=== PATIENT | female | born 1990 | race African-American/Black ===

== ENCOUNTER 2016-12-30 14:44 | Emergency (ER) | payer BC ==
[~2016-12-30 14:44] MED LIST: PROM25TA5 PO
[2016-12-30 16:17] VITALS: BP 102/50; PULSE 65; RESP 18; TEMP 97; O2SAT 100
== END 2016-12-30 16:52 | disposition left against medical advice (07) ==
LOC: NEDAMB 14:44
DX: R42 Dizziness and giddiness (principal)
CPT/HCPCS: 99281

== ENCOUNTER 2017-03-04 12:50 | Emergency (ER) | payer BC ==
[~2017-03-04] VITALS: Ht 154.9 cm; Wt 61.0 kg
[2017-03-04 12:52] VITALS: BP 108/56; PULSE 82; RESP 20; TEMP 98.6; O2SAT 99
[2017-03-04] MEDS ORDERED: FERR1TAB36 PO (13:51)
--- NOTE | 2017-03-04 13:58 | PD ---
HPI . Abdomen pain Chief Complaint: Abdominal Pain Time Seen by Provider: 13:43 Travel History International Travel<30 days: No Contact w/Intl Traveler<30days: No Traveled to known affect area: No History of Present Illness HPI Patient presents with abdominal pain which started last night. He describes it as a bubbling. She has had 2 episodes of emesis, the last being about 9 PM last night. She reports approximately 4 episodes of diarrhea. She has taken Imodium without relief. She denies fever. She denies urinary tract symptoms. She states that she has been around a couple of people at work with the same thing. PFSH Past Medical History Hx Anticoagulant Therapy: No Anemia: Yes Depression: Yes Cardiovascular Problems: No Chemotherapy: No Cerebrovascular Accident: No Diabetes: No Diminished Hearing: No Gestational Age in Weeks: 10 Hypertension: Yes Inguinal Hernia: Yes Psychiatric: Yes Respiratory: No Immunizations Current: Yes Tetanus Vaccination: > 5 Years Influenza Vaccination: No ?: Not LMP: 02/22/17 : 3 Para: 0 Miscarriage: 1 Dilation and Curettage (D&C): Yes Past Surgical History Gynecologic Surgery: Yes (D&C) Social History Alcohol Use: Yes (rare) Tobacco Use: No Substance Use: No Allergies-Medications (Allergen,Severity, Reaction): Coded Allergies: No Known Allergies (Verified , 03/04/17) Reported Meds & Prescriptions Reported Meds & Active Scripts Active Reported Iron (Ferrous Sulfate) 325 Mg Tab 325 Mg PO DAILY Take Review of Systems Except as stated in HPI: all other systems reviewed are Neg General / Constitutional: No: Fever, Chills Gastrointestinal: Positive: Nausea, Vomiting, Diarrhea, Abdominal Pain Genitourinary: No: Urgency, Frequency, Dysuria Physical Exam Narrative GENERAL: Awake and alert in no acute distress. SKIN: Warm and dry. HEAD: Atraumatic. Normocephalic. EYES: Pupils equal and round. Extraocular movements are intact. ENT: No nasal bleeding or discharge. Mucous membranes pink and moist. NECK: Trachea midline. Neck is supple. CARDIOVASCULAR: Regular rate and rhythm. Heart sounds are normal. RESPIRATORY: No accessory muscle use. Lungs are clear with full air movement throughout. GASTROINTESTINAL: Abdomen soft, non-tender, nondistended. Bowel sounds positive. MUSCULOSKELETAL: No obvious deformities. No edema. NEUROLOGICAL: Awake and alert. No obvious cranial nerve deficits. Motor grossly within normal limits. Normal speech. PSYCHIATRIC: Appropriate mood and affect; insight and judgment normal. Data Data Last Documented VS Vital Signs Date Time Temp Pulse Resp B/P Pulse Ox O2 Delivery O2 Flow Rate FiO2 03/04/17 13:43 18 03/04/17 12:52 98.6 82 108/56 99 Room Air Orders Ed Urine Pregnancytest Poc (03/04/17 13:52) Urinalysis - C+S If Indicated (03/04/17 13:52) [facility] Medical Decision Making Medical Screen Exam Complete: Yes Emergency Medical Condition: Yes Differential Diagnosis Differential diagnosis of diarrhea includes but is not limited to early enteritis, bacterial enteritis, antibiotic induced diarrhea, irritable bowel syndrome Narrative Course Patient presents for abdominal pain associated with nausea, vomiting and diarrhea. He has a benign abdominal exam. Her symptoms are consistent with viral gastroenteritis. Diagnosis Primary Impression: Gastroenteritis Patient Instructions: Gastroenteritis (DC), General Instructions Disposition: 01 DISCHARGE HOME Condition: Stable Li Bull MD Mar 04, 2017 13:58
== END 2017-03-04 14:40 | disposition home or self-care (01) ==
LOC: NEPD 12:50
DX: K52.9 Noninfective gastroenteritis and colitis, unspecified (principal); I10 Essential (primary) hypertension
CPT/HCPCS: 84703; 99284

== ENCOUNTER 2017-12-30 16:27 | Emergency (ER) | payer SELFPAY ==
[~2017-12-30] VITALS: Ht 157.5 cm; Wt 69.8 kg
[~2017-12-30 16:27] MED LIST changes: +FERR1TAB36 PO; -PROM25TA5 PO
[2017-12-30 16:59] VITALS: BP 125/60; PULSE 90; RESP 16; TEMP 98.3; O2SAT 100
[2017-12-30] MEDS ORDERED: SODIUM CHLOR 0.9% 1000 ML INJ 1,000 ML IV SCH (17:32)
[2017-12-30 17:35] VITALS: O2SAT 98
--- NOTE | 2017-12-30 17:41 | PD ---
HPI Chief Complaint: Abdominal Pain Time Seen by Provider: 17:23 Travel History International Travel<30 days: No Contact w/Intl Traveler<30days: No Traveled to known affect area: No History of Present Illness HPI The patient is a 27-year-old Teri female who presents emergency department for a one-week history of nausea, vomiting, diarrhea, and intermittent abdominal cramping. The patient complains of nausea and vomiting, not related to eating, was able to eat a nutritional bar earlier today. She also complains of diarrhea, 2-3 episodes daily of loose to watery stool without any visible blood. She also complains of generalized abdominal cramping, worse prior to diarrhea, and alleviated after having a bowel movement. Last menstrual cycle was December 02, 2016. She denies any dysuria, frequency, urgency , or abnormal vaginal discharge. She denies any associated fever. She denies any recent international travel or drinking well water. The patient works at the [employer]. PFS Past Medical History Hx Anticoagulant Therapy: No Anemia: Yes Depression: Yes Cardiovascular Problems: No Chemotherapy: No Cerebrovascular Accident: No Diabetes: No Diminished Hearing: No Gestational Age in Weeks: 10 Hypertension: Yes Inguinal Hernia: Yes Psychiatric: Yes Respiratory: No Immunizations Current: Yes ?: Unknown LMP: 12/04/17 : 3 Para: 0 Miscarriage: 1 Dilation and Curettage (D&C): Yes Past Surgical History Gynecologic Surgery: Yes (D&C) Social History Alcohol Use: Yes (rare) Tobacco Use: No Substance Use: No Allergies-Medications (Allergen,Severity, Reaction): Coded Allergies: No Known Allergies (Verified Adverse Reaction, Unknown, 12/30/17) Reported Meds & Prescriptions Reported Meds & Active Scripts Active Zofran Odt (Ondansetron Odt) 4 Mg Tab 4 Mg SL Q6HR PRN Review of Systems Except as stated in HPI: all other systems reviewed are Neg General / Constitutional: No: Fever Cardiovascular: No: Chest Pain or Discomfort Respiratory: No: Shortness of Breath Gastrointestinal: Positive: Nausea, Vomiting, Diarrhea, Abdominal Pain Genitourinary: No: Dysuria, Discharge, Vaginal Bleeding Musculoskeletal: No: Myalgias, Arthralgias Skin: No Rash Physical Exam Narrative GENERAL: Awake, alert, pleasant 27-year-old female who appears her stated age and is in no acute respiratory distress. SKIN: Focused skin assessment warm/dry. HEAD: Atraumatic. Normocephalic. EYES: No scleral icterus. ENT: No nasal bleeding or discharge. Dry mucous membranes. NECK: Trachea midline. No JVD. CARDIOVASCULAR: Regular rate and rhythm. No murmur appreciated. RESPIRATORY: No accessory muscle use. Clear to auscultation. Breath sounds equal bilaterally. GASTROINTESTINAL: Abdomen soft, non-tender, nondistended. No rebound tenderness , guarding, rigidity. Back: No CVA tenderness. MUSCULOSKELETAL: No obvious deformities. No clubbing. No cyanosis. No edema. NEUROLOGICAL: Awake and alert. No obvious cranial nerve deficits. Motor grossly within normal limits. Normal speech. PSYCHIATRIC: Appropriate mood and affect; insight and judgment normal. Data Data Last Documented VS Vital Signs Date Time Temp Pulse Resp B/P (MAP) Pulse Ox O2 Delivery O2 Flow Rate FiO2 12/30/17 18:35 77 18 115/78 (90) 97 Room Air 12/30/17 16:59 98.3 Orders Orders Complete Blood Count With Diff (12/30/17 17:32) Comprehensive Metabolic Panel (12/30/17 17:32) Lipase (12/30/17 17:32) Urinalysis - C+S If Indicated (12/30/17 17:32) Iv Access Insert/Monitor (12/30/17 17:32) Ecg Monitoring (12/30/17 17:32) Oximetry (12/30/17 17:32) Ondansetron Inj (Zofran Inj) (12/30/17 17:45) Sodium Chlor 0.9% 1000 Ml Inj (Ns 1000 M (12/30/17 17:32) Sodium Chloride 0.9% Flush (Ns Flush) (12/30/17 17:45) Ed Urine Pregnancytest Poc (12/30/17 17:32) Ed Discharge Order (12/30/17 19:19) Labs Laboratory Tests Test 12/30/17 17:40 White Blood Count 5.9 TH/MM3 Red Blood Count 3.46 MIL/MM3 Hemoglobin 5.9 GM/DL Hematocrit 19.5 % Mean Corpuscular Volume 56.3 FL Mean Corpuscular Hemoglobin 17.2 PG Mean Corpuscular Hemoglobin Concent 30.5 % Red Cell Distribution Width 19.8 % Platelet Count 218 TH/MM3 Mean Platelet Volume 7.7 FL Neutrophils (%) (Auto) 45.3 % Lymphocytes (%) (Auto) 41.8 % Monocytes (%) (Auto) 11.4 % Eosinophils (%) (Auto) 0.6 % Basophils (%) (Auto) 0.9 % Neutrophils # (Auto) 2.6 TH/MM3 Lymphocytes # (Auto) 2.5 TH/MM3 Monocytes # (Auto) 0.7 TH/MM3 Eosinophils # (Auto) 0.0 TH/MM3 Basophils # (Auto) 0.1 TH/MM3 CBC Comment AUTO DIFF Differential Comment AUTO DIFF CONFIRMED Platelet Estimate NORMAL Platelet Morphology Comment NORMAL Tear Drop Cells 1+ Ovalocytes 1+ Urine Color YELLOW Urine Turbidity CLEAR Urine pH 6.0 Urine Specific [place] 1.015 Urine Protein NEG mg/dL Urine Glucose (UA) NEG mg/dL Urine Ketones NEG mg/dL Urine Occult Blood NEG Urine Nitrite NEG Urine Bilirubin NEG Urine Leukocyte Esterase NEG Urine RBC 0-2 /hpf Urine WBC 0-2 /hpf Urine Squamous Epithelial Cells 0-5 /hpf Urine Bacteria NONE /hpf Microscopic Urinalysis Comment CULT NOT INDICATED Blood Urea Nitrogen 11 MG/DL Creatinine 0.61 MG/DL Random Glucose 86 MG/DL Total Protein 8.3 GM/DL Albumin 3.4 GM/DL Calcium Level 8.6 MG/DL Alkaline Phosphatase 92 U/L Aspartate Amino Transf (AST/SGOT) 18 U/L Alanine Aminotransferase (ALT/SGPT) 17 U/L Total Bilirubin 0.3 MG/DL Sodium Level 137 MEQ/L Potassium Level 3.8 MEQ/L Chloride Level 107 MEQ/L Carbon Dioxide Level 25.1 MEQ/L Anion Gap 5 MEQ/L Estimat Glomerular Filtration Rate 141 ML/MIN Lipase 92 U/L MDM Medical Decision Making Medical Screen Exam Complete: Yes Emergency Medical Condition: Yes Medical Record Reviewed: Yes Interpretation(s) Laboratory Tests Test 12/30/17 17:40 White Blood Count 5.9 TH/MM3 Red Blood Count 3.46 MIL/MM3 Hemoglobin 5.9 GM/DL Hematocrit 19.5 % Mean Corpuscular Volume 56.3 FL Mean Corpuscular Hemoglobin 17.2 PG Mean Corpuscular Hemoglobin Concent 30.5 % Red Cell Distribution Width 19.8 % Platelet Count 218 TH/MM3 Mean Platelet Volume 7.7 FL Neutrophils (%) (Auto) 45.3 % Lymphocytes (%) (Auto) 41.8 % Monocytes (%) (Auto) 11.4 % Eosinophils (%) (Auto) 0.6 % Basophils (%) (Auto) 0.9 % Neutrophils # (Auto) 2.6 TH/MM3 Lymphocytes # (Auto) 2.5 TH/MM3 Monocytes # (Auto) 0.7 TH/MM3 Eosinophils # (Auto) 0.0 TH/MM3 Basophils # (Auto) 0.1 TH/MM3 CBC Comment AUTO DIFF Differential Comment AUTO DIFF CONFIRMED Platelet Estimate NORMAL Platelet Morphology Comment NORMAL Tear Drop Cells 1+ Ovalocytes 1+ Urine Color YELLOW Urine Turbidity CLEAR Urine pH 6.0 Urine Specific [place] 1.015 Urine Protein NEG mg/dL Urine Glucose (UA) NEG mg/dL Urine Ketones NEG mg/dL Urine Occult Blood NEG Urine Nitrite NEG Urine Bilirubin NEG Urine Leukocyte Esterase NEG Urine RBC 0-2 /hpf Urine WBC 0-2 /hpf Urine Squamous Epithelial Cells 0-5 /hpf Urine Bacteria NONE /hpf Microscopic Urinalysis Comment CULT NOT INDICATED Blood Urea Nitrogen 11 MG/DL Creatinine 0.61 MG/DL Random Glucose 86 MG/DL Total Protein 8.3 GM/DL Albumin 3.4 GM/DL Calcium Level 8.6 MG/DL Alkaline Phosphatase 92 U/L Aspartate Amino Transf (AST/SGOT) 18 U/L Alanine Aminotransferase (ALT/SGPT) 17 U/L Total Bilirubin 0.3 MG/DL Sodium Level 137 MEQ/L Potassium Level 3.8 MEQ/L Chloride Level 107 MEQ/L Carbon Dioxide Level 25.1 MEQ/L Anion Gap 5 MEQ/L Estimat Glomerular Filtration Rate 141 ML/MIN Lipase 92 U/L Differential Diagnosis Differential diagnosis includes gastroenteritis, viral syndrome, food poisoning , dehydration, biliary colic, cholecystitis, pancreatitis electrolyte abnormality, , pyelonephritis. Narrative Course IV was established, labs are drawn and sent, and the patient was placed on cardiac telemetry monitoring and continuous pulse oximetry monitoring. The patient was administered Zofran and IV fluids. UA was sent to lab. Bedside UA test was negative. Urine was unremarkable. LFTs and lipase are unremarkable. The patient's hemoglobin was 5.9. I reviewed the EMR, she does have a history of anemia, notes that she has heavy menstrual cycles. The patient denies any rectal bleeding. She has signed out against diploma medical assistant in the past when requiring a blood transfusion, states she does not want to stay in the hospital. I had a discussion with the patient regarding blood transfusion versus outpatient follow-up with gynecology for possible placement on control for her heavy cycles as well as iron administration and her transfusion and/or follow-up with transportation economics teacher. My recommendations were for 23 hour observation for type and screen and blood transfusion with outpatient workup and follow-up. However, the patient does not want to be admitted, is going to sign out AGAINST MEDICAL ADVICE. She is advised to return if symptoms worsen or progress. Diagnosis Primary Impression: Gastroenteritis Additional Impressions: Nausea vomiting and diarrhea Microcytic anemia Patient Instructions: General Instructions Additional Instructions: Medications as directed. Plenty fluids to stay hydrated. Please provide the patient a copy of her labs at discharge. Work excuse for 2 days. Clear liquid diet and advance as tolerated. Return if you change her mind in regards to blood transfusion. Follow-up with the transportation economics teacher and/or manager fleet. Med/Other Pt SpecificInfo: Prescription(s) given Scripts Ondansetron Odt (Zofran Odt) 4 Mg Tab 4 MG SL Q6HR Y for Nausea/Vomiting, #10 TAB 0 Refills Prov: Holden Waggoner MD 12/30/17 Disposition: 07 AGAINST MEDICAL ADVICE Condition: Stable Holden Waggoner MD Dec 30, 2017 17:41
[2017-12-30] MEDS ORDERED: SODIUM CHLORIDE 0.9% FLUSH 10 ML FLUSH IV FLUSH PRN (17:45)
[2017-12-30] MEDS ORDERED: ONDANSETRON HCL 4 MG/2 ML VIAL IVP ONE (17:45)
[2017-12-30 17:58] LABS: BILIRUBIN, URINE NEG (NEG); BLOOD, URINE NEG (NEG); GLUCOSE,URINE NEG (NEG); KETONE, URINE NEG (NEG); NITRITE,URINE NEG (NEG); URINE LEUKOCYTE ESTERASE NEG (NEG)
[2017-12-30 18:05] LABS: CHLORIDE 107 MEQ/L (98-107); SODIUM (NA) 137 MEQ/L (136-145)
[2017-12-30 18:06] LABS: RBC, URINE 0-2 /hpf (0-3); SQUAMOUS EPITHELIAL CELL URINE 0-5 /hpf (0-5); URINE COLOR YELLOW (YELLW/STRAW); WBC, URINE 0-2 /hpf (0-5)
[2017-12-30 18:08] LABS: CALCIUM 8.6 MG/DL (8.5-10.1)
[2017-12-30 18:09] LABS: ALBUMIN 3.4 GM/DL (3.4-5.0); BICARBONATE 25.1 MEQ/L (21.0-32.0); BLOOD UREA NITROGEN 11 MG/DL (7-18); GLUCOSE,RANDOM 86 MG/DL (74-106)
[2017-12-30 18:12] LABS: ALT (GPT) 17 U/L (10-53); AST (GOT) 18 U/L (15-37); CREATININE 0.61 MG/DL (0.50-1.00); GLOMERULAR FILTRATION RATE 141 ML/MIN (>89)
[2017-12-30 18:13] LABS: TOTAL BILIRUBIN ADULT 0.3 MG/DL (0.2-1.0); TOTAL PROTEIN 8.3 GM/DL (6.4-8.2)
[2017-12-30 18:14] LABS: ALKALINE PHOSPHATASE 92 U/L (45-117)
[2017-12-30] MEDS ORDERED: ZOFR4TAB3 SL (18:17)
[2017-12-30 18:35] VITALS: BP 115/78; PULSE 77; RESP 18; O2SAT 97
[2017-12-30 18:38] LABS: AUTOMATED NEUTROPHIL # 2.6 TH/MM3 (1.8-7.7); BASOPHIL # 0.1 TH/MM3 (0-0.2); BASOPHIL % 0.9 % (0.0-2.0); EOSINOPHIL % 0.6 % (0.0-4.0); LYMPH % 41.8 % (9.0-44.0); LYMPHOCYTE # 2.5 TH/MM3 (1.0-4.8); MEAN CELL VOLUME 56.3 FL (80.0-100.0); MEAN CORPUSCULAR HEMOGLOBIN 17.2 PG (27.0-34.0); MEAN CORPUSCULAR HGB CONC 30.5 % (32.0-36.0); MEAN PLATELET VOLUME 7.7 FL (7.0-11.0); MONO % 11.4 % (0.0-8.0); MONOCYTE # 0.7 TH/MM3 (0-0.9); NEUT % 45.3 % (16.0-70.0); PLATELET COUNT 218 TH/MM3 (150-450); RED BLOOD COUNT 3.46 MIL/MM3 (4.00-5.30); RED CELL DISTRIBUTION WIDTH 19.8 % (11.6-17.2); WHITE BLOOD COUNT 5.9 TH/MM3 (4.0-11.0)
[2017-12-30 18:42] LABS: HEMATOCRIT 19.5 % (35.0-46.0); HEMOGLOBIN 5.9 GM/DL (11.6-15.3)
[2017-12-30 19:02] LABS: OVALOCYTES 1+ (NORMAL); TEARDROP RBCS 1+ (NORMAL)
[2017-12-30 19:33] VITALS: BP 116/66; PULSE 74; RESP 18; O2SAT 98
== END 2017-12-30 19:36 | disposition left against medical advice (07) ==
LOC: PHED 16:27
DX: K52.9 Noninfective gastroenteritis and colitis, unspecified (principal); D50.9 Iron deficiency anemia, unspecified; F32.9 Major depressive disorder, single episode, unspecified; I10 Essential (primary) hypertension
CPT/HCPCS: 80053; 81001; 83690; 84703; 85025; 96361; 96374; 99284; J2405; J7030

== ENCOUNTER 2018-03-07 23:50 | Emergency (ER) | payer SELFPAY ==
[~2018-03-07] VITALS: Ht 154.9 cm; Wt 72.5 kg
[~2018-03-07 23:50] MED LIST changes: -FERR1TAB36 PO; +ZOFR4TAB3 SL
[2018-03-08] VITALS: BP 115/57; PULSE 82; RESP 18; TEMP 98.9; O2SAT 99
[2018-03-08] MEDS ORDERED: SODIUM CHLOR 0.9% 1000 ML INJ 1,000 ML IV SCH (00:14)
[2018-03-08] MEDS ORDERED: ONDANSETRON HCL 4 MG/2 ML VIAL IVP ONE (00:15)
[2018-03-08] MEDS ORDERED: SODIUM CHLORIDE 0.9% FLUSH 10 ML FLUSH IV FLUSH PRN (00:15)
[2018-03-08] MEDS ORDERED: ZOFR4TAB PO (00:22)
--- NOTE | 2018-03-08 00:22 | PD ---
HPI Chief Complaint: Nausea vomiting diarrhea Time Seen by Provider: 00:07 Travel History International Travel<30 days: No Contact w/Intl Traveler<30days: No Traveled to known affect area: No History of Present Illness HPI Patient is a 27-year-old female who presents the emergency room with complaints of nausea, vomiting and diarrhea for the past 5 days. Patient reports that since she could not stop vomiting while at work today, she decided to come to the ER for evaluation. Patient reports no sick contacts. Denies taking any antibiotics recently. Reports that she thinks that she may have food poisoning. Patient denies any fevers or chills. Reports diffuse abdominal cramping. Denies any vaginal discharge or bleeding. Denies any pelvic pain. Denies dysuria, urinary urgency or frequency. Patient denies any recent travels or trips. Of note, patient does have history of iron deficiency anemia which she gets frequent blood transfusions for PFSH Past Medical History Hx Anticoagulant Therapy: No Anemia: Yes Depression: Yes Cardiovascular Problems: Yes (valve regurgitation) Chemotherapy: No Cerebrovascular Accident: No Diabetes: No Diminished Hearing: No Gestational Age in Weeks: 10 Hypertension: Yes Inguinal Hernia: Yes Psychiatric: Yes Respiratory: No Immunizations Current: Yes : 3 Para: 0 Miscarriage: 1 Dilation and Curettage (D&C): Yes Past Surgical History Gynecologic Surgery: Yes (D&C) Social History Alcohol Use: Yes (rare) Tobacco Use: No Substance Use: Yes (mj) Allergies-Medications (Allergen,Severity, Reaction): Coded Allergies: No Known Allergies (Verified Adverse Reaction, Unknown, 12/30/17) Reported Meds & Prescriptions Reported Meds & Active Scripts Active Zofran (Ondansetron HCl) 4 Mg Tab 4 Mg PO Q6HR PRN Zofran Odt (Ondansetron Odt) 4 Mg Tab 4 Mg SL Q6HR PRN Review of Systems General / Constitutional: No: Fever Eyes: No: Visual changes HENT: No: Headaches Cardiovascular: No: Chest Pain or Discomfort Respiratory: No: Shortness of Breath Gastrointestinal: Positive: Nausea, Vomiting, Diarrhea, No: Abdominal Pain Genitourinary: No: Dysuria Musculoskeletal: No: Pain Skin: No Rash Neurologic: No: Weakness Psychiatric: No: Depression Endocrine: No: Polydipsia Hematologic/Lymphatic: No: Easy Bruising Physical Exam Narrative GENERAL: NAD, nontoxic SKIN: Focused skin assessment warm/dry. HEAD: Atraumatic. Normocephalic. EYES: Pupils equal and round. No scleral icterus. No injection or drainage. ENT: No nasal bleeding or discharge. Mucous membranes pink and moist. NECK: Trachea midline. No JVD. CARDIOVASCULAR: Regular rate and rhythm. No murmur appreciated. RESPIRATORY: No accessory muscle use. Clear to auscultation. Breath sounds equal bilaterally. GASTROINTESTINAL: Abdomen soft, non-tender, nondistended. Hepatic and splenic margins not palpable. MUSCULOSKELETAL: No obvious deformities. No clubbing. No cyanosis. No edema. NEUROLOGICAL: Awake and alert. No obvious cranial nerve deficits. Motor grossly within normal limits. Normal speech. PSYCHIATRIC: Appropriate mood and affect; insight and judgment normal. Data Data Last Documented VS Vital Signs Date Time Temp Pulse Resp B/P (MAP) Pulse Ox O2 Delivery O2 Flow Rate FiO2 03/08/18 00:36 98 4 00:00 98.9 82 18 Orders Orders Beta Hcg (Quant/Titer) (03/08/18:14) Complete Blood Count With Diff (03/08/18:14) Comprehensive Metabolic Panel (03/08/18 00:14) Lipase (03/08/18 00:14) Prothrombin Time / Inr (Pt) (03/08/18:14) Act Partial Throm Time (Ptt) (03/08/18:14) Urinalysis - C+S If Indicated (03/08/18 00:14) Iv Access Insert/Monitor (03/08/18:14) Ecg Monitoring (03/08/18:14) Oximetry (03/08/18 00:14) Ondansetron Inj (Zofran Inj) (03/08/18 00:15) Sodium Chlor 0.9% 1000 Ml Inj (Ns 1000 M (03/08/18 00:14) Sodium Chloride 0.9% Flush (Ns Flush) (03/08/18 00:15) Ed Urine Pregnancytest Poc (03/08/18 00:14) Labs Laboratory Tests Test 03/08/18 00:30 White Blood Count 5.5 TH/MM3 Red Blood Count 3.85 MIL/MM3 Hemoglobin 7.4 GM/DL Hematocrit 24.6 % Mean Corpuscular Volume 64.0 FL Mean Corpuscular Hemoglobin 19.4 PG Mean Corpuscular Hemoglobin Concent 30.3 % Red Cell Distribution Width 27.2 % Platelet Count 396 TH/MM3 Mean Platelet Volume 7.1 FL CBC Comment AUTO DIFF MDM Medical Decision Making Medical Screen Exam Complete: Yes Emergency Medical Condition: Yes Medical Record Reviewed: Yes Interpretation(s) Vital Signs Date Time Temp Pulse Resp B/P (MAP) Pulse Ox O2 Delivery O2 Flow Rate FiO2 03/08/18 00:00 98.9 82 18 115/57 (76) 99 Differential Diagnosis Gastritis, gastroenteritis, electrolyte abnormality, appendicitis, UTI, cholecystitis Narrative Course Patient is a 27-year-old female presents to emergency room with complaints of nausea, vomiting, diarrhea for the past 5 days. Patient had multiple episodes of vomiting while at work today, patient here to find out if she has food poisoning. Patient with no abdominal pain, reports diffuse abdominal cramping. During the course of the patients emergency department visit, the patients history, examination, and differential diagnosis were reviewed with the patient. The patient was placed on a transfer driver with oximetry and frequent blood pressure monitoring. The patient had an IV access obtained and blood work sent for analysis. The patient was initially provided IVF, IV Zofran patient signed out to care of Dr. Blake at change of shift Diagnosis Primary Impression: Nausea vomiting and diarrhea Additional Impression: Anemia Departure Forms: Work Release Enter return to work date: Mar 12, 2018 Additional Instructions: Please provide patient with a copy of their lab work and studies at discharge* * Please follow up with your primary care doctor in 2-3 days Return to the ER if symptoms worsen or progress Return to the ER as needed Med/Other Pt SpecificInfo: Prescription(s) given Scripts Ondansetron (Zofran) 4 Mg Tab 4 MG PO Q6HR Y for NAUSEA OR VOMITING, #20 TAB 0 Refills Prov: Christel Comer DO 03/08/18 Christel Comer DO Mar 08, 2018 00:22
[2018-03-08 00:36] VITALS: O2SAT 98
[2018-03-08 00:39] LABS: HEMATOCRIT 24.6 % (35.0-46.0); HEMOGLOBIN 7.4 GM/DL (11.6-15.3); MEAN CORPUSCULAR HEMOGLOBIN 19.4 PG (27.0-34.0); MEAN CORPUSCULAR HGB CONC 30.3 % (32.0-36.0); MEAN PLATELET VOLUME 7.1 FL (7.0-11.0); PLATELET COUNT 396 TH/MM3 (150-450); RED BLOOD COUNT 3.85 MIL/MM3 (4.00-5.30); RED CELL DISTRIBUTION WIDTH 27.2 % (11.6-17.2); WHITE BLOOD COUNT 5.5 TH/MM3 (4.0-11.0)
[2018-03-08 00:41] LABS: BILIRUBIN, URINE NEG (NEG); BLOOD, URINE NEG (NEG); GLUCOSE,URINE NEG (NEG); KETONE, URINE NEG (NEG); NITRITE,URINE NEG (NEG); PH, URINE 5.5 (5.0-8.5); URINE COLOR YELLOW (YELLW/STRAW); URINE LEUKOCYTE ESTERASE NEG (NEG)
[2018-03-08 00:45] LABS: BACTERIA, URINE OCC /hpf; RBC, URINE 0-2 /hpf (0-3); SQUAMOUS EPITHELIAL CELL URINE > 8 /hpf (0-5); WBC, URINE 0-2 /hpf (0-5)
[2018-03-08 00:47] LABS: CHLORIDE 105 MEQ/L (98-107); SODIUM (NA) 138 MEQ/L (136-145)
[2018-03-08 00:50] LABS: CALCIUM 8.4 MG/DL (8.5-10.1); LYMPHOCYTES 38 % (9-44); MONOCYTES 6 % (0-8); OVALOCYTES 2+ (NORMAL); POLYS (SEG NEUTROPHILS) 55 % (16-70); TEARDROP RBCS 1+ (NORMAL)
[2018-03-08 00:51] LABS: ALBUMIN 3.2 GM/DL (3.4-5.0); BICARBONATE 28.4 MEQ/L (21.0-32.0); BLOOD UREA NITROGEN 10 MG/DL (7-18); GLUCOSE,RANDOM 88 MG/DL (74-106)
[2018-03-08 00:54] LABS: ALT (GPT) 21 U/L (10-53); AST (GOT) 16 U/L (15-37); CREATININE 0.58 MG/DL (0.50-1.00); GLOMERULAR FILTRATION RATE 150 ML/MIN (>89)
[2018-03-08 00:55] LABS: TOTAL BILIRUBIN ADULT 0.3 MG/DL (0.2-1.0); TOTAL PROTEIN 7.7 GM/DL (6.4-8.2)
[2018-03-08 00:57] LABS: ALKALINE PHOSPHATASE 102 U/L (45-117)
[2018-03-08] MEDS ORDERED: PROC10TA PO (02:23)
--- NOTE | 2018-03-08 02:25 | PD ---
Physical Exam Time Seen by Provider: 02:[address] Comer left this patient with me to check the results of the laboratory and make a disposition. Data Data Last Documented VS Vital Signs Date Time Temp Pulse Resp B/P (MAP) Pulse Ox O2 Delivery O2 Flow Rate FiO2 03/08/18 00:36 98 03/08/18 00:00 98.9 82 18 Orders Orders Beta Hcg (Quant/Titer) (03/08/18 00:14) Complete Blood Count With Diff (03/08/18:14) Comprehensive Metabolic Panel (03/08/18 00:14) Lipase (03/08/18 00:14) Prothrombin Time / Inr (Pt) (03/08/18:14) Act Partial Throm Time (Ptt) (03/08/18:14) Urinalysis - C+S If Indicated (03/08/18:14) Iv Access Insert/Monitor (03/08/18 00:14) Ecg Monitoring (03/08/18 00:14) Oximetry (03/08/18 00:14) Ondansetron Inj (Zofran Inj) (03/08/18 00:15) Sodium Chlor 0.9% 1000 Ml Inj (Ns 1000 M (03/08/18 00:14) Sodium Chloride 0.9% Flush (Ns Flush) (03/08/18 00:15) Ed Urine Pregnancytest Poc (03/08/18 00:14) Labs Laboratory Tests Test 03/08/18 00:30 White Blood Count 5.5 TH/MM3 Red Blood Count 3.85 MIL/MM3 Hemoglobin 7.4 GM/DL Hematocrit 24.6 % Mean Corpuscular Volume 64.0 FL Mean Corpuscular Hemoglobin 19.4 PG Mean Corpuscular Hemoglobin Concent 30.3 % Red Cell Distribution Width 27.2 % Platelet Count 396 TH/MM3 Mean Platelet Volume 7.1 FL CBC Comment AUTO DIFF Differential Total Cells Counted 100 Neutrophils % (Manual) 55 % Lymphocytes % 38 % Monocytes % 6 % Eosinophils % 1 % Neutrophils # (Manual) 3.0 TH/MM3 Differential Comment FINAL DIFF MANUAL Platelet Estimate NORMAL Platelet Morphology Comment NORMAL Tear Drop Cells 1+ Ovalocytes 2+ Prothrombin Time 10.0 SEC Prothromb Time International Ratio 1.0 RATIO Activated Partial Thromboplast Time 26.8 SEC Urine Color YELLOW Urine Turbidity CLEAR Urine pH 5.5 Urine Specific [place] 1.025 Urine Protein NEG mg/dL Urine Glucose (UA) NEG mg/dL Urine Ketones NEG mg/dL Urine Occult Blood NEG Urine Nitrite NEG Urine Bilirubin NEG Urine Urobilinogen 0.2 MG/DL Urine Leukocyte Esterase NEG Urine RBC 0-2 /hpf Urine WBC 0-2 /hpf Urine Squamous Epithelial Cells > 8 /hpf Urine Bacteria OCC /hpf Microscopic Urinalysis Comment CULT NOT INDICATED Blood Urea Nitrogen 10 MG/DL Creatinine 0.58 MG/DL Random Glucose 88 MG/DL Total Protein 7.7 GM/DL Albumin 3.2 GM/DL Calcium Level 8.4 MG/DL Alkaline Phosphatase 102 U/L Aspartate Amino Transf (AST/SGOT) 16 U/L Alanine Aminotransferase (ALT/SGPT) 21 U/L Total Bilirubin 0.3 MG/DL Sodium Level 138 MEQ/L Potassium Level 3.6 MEQ/L Chloride Level 105 MEQ/L Carbon Dioxide Level 28.4 MEQ/L Anion Gap 5 MEQ/L Estimat Glomerular Filtration Rate 150 ML/MIN Lipase 118 U/L Human Chorionic Gonadotropin, Quant LESS THAN 1 MIU/ML [facility] Medical Record Reviewed: Yes Supervised Visit with DESHAWN: No Interpretation(s) The CBC shows a hemoglobin of 7.4 and hematocrit of 24.6 with MCV, MCH and MCHC all low. The complete metabolic profile shows a calcium of 8.4 and albumin 3.2 but is otherwise normal. Lipase is normal and the beta-hCG is less than 1. The coagulation profile is normal. Except for occasional bacteria, the urinalysis is normal and cultures not indicated. The specific gravity is 1.025. Differential Diagnosis Anemia, electrolyte disorder, dehydration, pancreatitis-unlikely Narrative Course The patient has chronic anemia. She is being worked up for this and is followed by this by her primary care physician She is known to have iron deficiency anemia. It is now 0221 in the morning and the patient feels much better and is now successfully drinking Gatorade. Diagnosis Primary Impression: Nausea vomiting and diarrhea Additional Impression: Anemia Departure Forms: Work Release Enter return to work date: Additional Instruction: Please provide patient with a copy of their lab work and studies at discharge* * Please follow up with your primary care doctor in 2-3 days Return to the ER if symptoms worsen or progress Return to the ER as needed Med/Other Pt SpecificInfo: Prescription(s) given Scripts Prochlorperazine Maleate (Prochlorperazine Maleate) 10 Mg Tab 10 MG PO Q6H Y for NAUSEA OR VOMITING, #28 TAB 0 Refills Prov: Isaías Blake MD 03/08/18 Ondansetron (Zofran) 4 Mg Tab 4 MG PO Q6HR Y for NAUSEA OR VOMITING, #20 TAB 0 Refills Prov: Christel Comer DO 03/08/18 Disposition: 01 DISCHARGE HOME Condition: Stable Isaías Blake MD Mar 08, 2018 02:25
[2018-03-08 02:41] VITALS: BP 120/54; TEMP 98.3
== END 2018-03-08 02:42 | disposition home or self-care (01) ==
LOC: PHED 23:50
DX: R11.2 Nausea with vomiting, unspecified (principal); R19.7 Diarrhea, unspecified; D50.9 Iron deficiency anemia, unspecified; F32.9 Major depressive disorder, single episode, unspecified; I10 Essential (primary) hypertension
CPT/HCPCS: 80053; 81001; 83690; 84702; 84703; 85007; 85027; 85610; 85730; 96361; 96374; 99284; J2405; J7030

== ENCOUNTER 2018-03-19 06:23 | Emergency (ER) | payer SELFPAY ==
[~2018-03-19] VITALS: Ht 154.9 cm; Wt 73.5 kg
[~2018-03-19 06:23] MED LIST changes: +PROC10TA PO; +ZOFR4TAB PO
[2018-03-19 06:27] VITALS: BP 132/75; PULSE 84; RESP 18; TEMP 99.3; O2SAT 100
--- NOTE | 2018-03-19 06:50 | PD ---
HPI Chief Complaint: abdominal pain Time Seen by Provider: 06:43 Travel History International Travel<30 days: No Contact w/Intl Traveler<30days: No Traveled to known affect area: No History of Present Illness HPI 27-year-old female presents to the emergency department by private transportation for complaint of 5 days of lower abdominal suprapubic pressure and pain. Patient rates her discomfort 8/10 intensity. Patient's had subjective fever without chills. No report of anorexia nausea vomiting or diarrhea. Patient is noted some dysuria and denies any hematuria or flank pain. Patient also denies any vaginal discharge or vaginal bleeding. Last menstrual period was the beginning of February and normal for her. Patient does not believe she is . Patient states that she frequently has menstrual related lower abdominal and suprapubic pressure and has had urinary tract infections in the past but this does not feel the same. Patient denies any injury or fall. Pain is not sudden onset or worst ever. Patient is taken no medication for symptom relief such as acetaminophen or ibuprofen. Patient states for her symptoms she drank a lot of water. PFSH Past Medical History Narrative Medical Anemia transfusion depression valvular heart disease UTI hypertension D&C alcohol use marijuana use; nursing notes reviewed Hx Anticoagulant Therapy: No Anemia: Yes Depression: Yes Cardiovascular Problems: Yes (valve regurgitation) Chemotherapy: No Cerebrovascular Accident: No Diabetes: No Diminished Hearing: No Gestational Age in Weeks: 10 Hypertension: Yes Inguinal Hernia: Yes Psychiatric: Yes Respiratory: No Immunizations Current: Yes : 3 Para: 0 Miscarriage: 1 Dilation and Curettage (D&C): Yes Past Surgical History Gynecologic Surgery: Yes (D&C) Social History Alcohol Use: Yes (rare) Tobacco Use: No Substance Use: Yes (WEED) Allergies-Medications (Allergen,Severity, Reaction): Coded Allergies: No Known Allergies (Verified Adverse Reaction, Unknown, 03/19/18) Reported Meds & Prescriptions Reported Meds & Active Scripts Active Review of Systems Except as stated in HPI: all other systems reviewed are Neg General / Constitutional: Positive: Fever (subjective), No: Chills HENT: No: Congestion Cardiovascular: No: Chest Pain or Discomfort Respiratory: No: Shortness of Breath Gastrointestinal: Positive: Nausea, Abdominal Pain (Lower abdomen suprapubic pressure), No: Vomiting, Diarrhea, Hematemesis Genitourinary: Positive: Dysuria, Pelvic Pain (Suprapubic pressure), No: Urgency, Frequency, Hematuria, Discharge, Vaginal Bleeding Musculoskeletal: No: Myalgias, Arthralgias Skin: No Rash Neurologic: No: Weakness, Dizziness Psychiatric: No: Anxiety Hematologic/Lymphatic: No: Easy Bruising Physical Exam Narrative GENERAL: Well-developed well-nourished female in no acute distress no respiratory distress no antalgic movement SKIN: Warm and dry. HEAD: Normocephalic. EYES: No scleral icterus. No injection or drainage. NECK: Supple, trachea midline. No JVD or lymphadenopathy. CARDIOVASCULAR: Regular rate and rhythm without murmurs, gallops, or rubs. RESPIRATORY: Breath sounds equal bilaterally. No accessory muscle use. GASTROINTESTINAL: Abdomen soft, mild suprapubic pressure to direct palpation no guarding or rebound, nondistended. MUSCULOSKELETAL: No cyanosis, or edema. BACK: Nontender without obvious deformity. No CVA tenderness. Data Data Last Documented VS Vital Signs Date Time Temp Pulse Resp B/P (MAP) Pulse Ox O2 Delivery O2 Flow Rate FiO2 03/19/18 06:27 99.3 84 18 132/75 (94) 100 Orders Orders Complete Blood Count With Diff (03/19/18 06:50) Basic Metabolic Panel (Bmp) (03/19/18 06:50) Ibuprofen (Motrin) (03/19/18 07:00) MDM Medical Decision Making Medical Screen Exam Complete: Yes Emergency Medical Condition: Yes Medical Record Reviewed: Yes Interpretation(s) POC hcg: negative Differential Diagnosis UTI, , ectopic , PID, ruptured ovarian cyst, mittelschmerz; also to consider but unlikely ovarian torsion or tubo-ovarian abscess or appendicitis Narrative Course Urine specimen collected and sent for resulting [id number] hCG ordered [id number]-he-[id number] hCG negative; patient given weight-based ibuprofen Review of medical records indicates patient is been seen several times for vague nonspecific lower abdominal pain CBC with automated differential has been done and patient has been found to be markedly anemic therefore will add CBC and basic metabolic panel to current evaluation At 7 AM care signed over oncoming physician for follow-up of pending labs and patient disposition Vanita Banuelos MD Mar 19, 2018 06:50
[2018-03-19] MEDS ORDERED: IBUPROFEN 600 MG TAB PO ONE (07:00)
[2018-03-19 07:24] LABS: AUTOMATED NEUTROPHIL # 3.7 TH/MM3 (1.8-7.7); BASOPHIL % 0.5 % (0.0-2.0); BILIRUBIN, URINE NEG (NEG); BLOOD, URINE NEG (NEG); EOSINOPHIL # 0.1 TH/MM3 (0-0.4); EOSINOPHIL % 0.7 % (0.0-4.0); GLUCOSE,URINE NEG (NEG); HEMATOCRIT 25.1 % (35.0-46.0); HEMOGLOBIN 7.4 GM/DL (11.6-15.3); KETONE, URINE NEG (NEG); LYMPH % 40.8 % (9.0-44.0); LYMPHOCYTE # 3.2 TH/MM3 (1.0-4.8); MEAN CELL VOLUME 63.8 FL (80.0-100.0); MEAN CORPUSCULAR HEMOGLOBIN 18.8 PG (27.0-34.0); MEAN PLATELET VOLUME 7.7 FL (7.0-11.0); MONO % 11.6 % (0.0-8.0); MONOCYTE # 0.9 TH/MM3 (0-0.9); NEUT % 46.4 % (16.0-70.0); NITRITE,URINE NEG (NEG); PLATELET COUNT 299 TH/MM3 (150-450); RED BLOOD COUNT 3.93 MIL/MM3 (4.00-5.30); RED CELL DISTRIBUTION WIDTH 25.3 % (11.6-17.2); URINE COLOR YELLOW (YELLW/STRAW); URINE LEUKOCYTE ESTERASE TRACE (NEG); WHITE BLOOD COUNT 7.9 TH/MM3 (4.0-11.0)
[2018-03-19 07:33] LABS: CALCIUM 8.5 MG/DL (8.5-10.1)
[2018-03-19 07:34] LABS: BICARBONATE 26.5 MEQ/L (21.0-32.0)
[2018-03-19 07:37] LABS: CREATININE 0.61 MG/DL (0.50-1.00); MEAN CORPUSCULAR HGB CONC 29.5 % (32.0-36.0)
[2018-03-19 07:49] LABS: WBC, URINE 0-2 /hpf (0-5)
[2018-03-19 08:03] LABS: OVALOCYTES 1+ (NORMAL); TEARDROP RBCS 1+ (NORMAL)
[2018-03-19] MEDS ORDERED: cefTRIAXone 250 MG VIAL IV ONE (08:30)
[2018-03-19] MEDS ORDERED: DOXY100C PO (08:53)
--- NOTE | 2018-03-19 08:53 | PD ---
Physical Exam Date Seen by Provider: Mar 19, 2018 Time Seen by Provider: 08:50 Narrative This 27-year-old female complaining of lower abdominal pain. She was seen initially by Dr. Banuelos who ordered urine blood work. She does have a history of iron deficiency anemia and has required transfusions. She was transfused last month. She has history of uterine fibroids and ovarian cysts. Her hemoglobin today is 7.4. Urinalysis is negative for infection. She has noted some discharge. Pelvic exam was done and there is some whitish discharge. There is pain with movement of the cervix. Presentation is consistent with cervicitis and she will receive Rocephin and doxycycline Data Data Last Documented VS Vital Signs Date Time Temp Pulse Resp B/P (MAP) Pulse Ox O2 Delivery O2 Flow Rate FiO2 03/19/18 06:27 99.3 84 18 132/75 (94) 100 Orders Orders Complete Blood Count With Diff (03/19/18 06:50) Basic Metabolic Panel (Bmp) (03/19/18 06:50) Ibuprofen (Motrin) (03/19/18 07:00) Urinalysis - C+S If Indicated (03/19/18 06:57) Ed Urine Pregnancytest Poc (03/19/18 06:57) Gc And Chlamydia Pcr (03/19/18 08:16) Wet Prep Profile (03/19/18 08:16) Ceftriaxone Inj (Rocephin Inj) (03/19/18 08:30) Labs Laboratory Tests Test 03/19/18 07:00 03/19/18 08:20 White Blood Count 7.9 TH/MM3 Red Blood Count 3.93 MIL/MM3 Hemoglobin 7.4 GM/DL Hematocrit 25.1 % Mean Corpuscular Volume 63.8 FL Mean Corpuscular Hemoglobin 18.8 PG Mean Corpuscular Hemoglobin Concent 29.5 % Red Cell Distribution Width 25.3 % Platelet Count 299 TH/MM3 Mean Platelet Volume 7.7 FL Neutrophils (%) (Auto) 46.4 % Lymphocytes (%) (Auto) 40.8 % Monocytes (%) (Auto) 11.6 % Eosinophils (%) (Auto) 0.7 % Basophils (%) (Auto) 0.5 % Neutrophils # (Auto) 3.7 TH/MM3 Lymphocytes # (Auto) 3.2 TH/MM3 Monocytes # (Auto) 0.9 TH/MM3 Eosinophils # (Auto) 0.1 TH/MM3 Basophils # (Auto) 0.0 TH/MM3 CBC Comment AUTO DIFF Differential Comment AUTO DIFF CONFIRMED Platelet Estimate NORMAL Platelet Morphology Comment NORMAL Tear Drop Cells 1+ Ovalocytes 1+ Urine Collection Type VOIDED Urine Color YELLOW Urine Turbidity CLEAR Urine pH 6.0 Urine Specific [place] 1.015 Urine Protein NEG mg/dL Urine Glucose (UA) NEG mg/dL Urine Ketones NEG mg/dL Urine Occult Blood NEG Urine Nitrite NEG Urine Bilirubin NEG Urine Urobilinogen 0.2 MG/DL Urine Leukocyte Esterase TRACE Urine WBC 0-2 /hpf Urine Squamous Epithelial Cells 1-3 /hpf Microscopic Urinalysis Comment CULT NOT INDICATED Blood Urea Nitrogen 10 MG/DL Creatinine 0.61 MG/DL Random Glucose 88 MG/DL Calcium Level 8.5 MG/DL Sodium Level 137 MEQ/L Potassium Level 4.0 MEQ/L Chloride Level 107 MEQ/L Carbon Dioxide Level 26.5 MEQ/L Anion Gap 4 MEQ/L Estimat Glomerular Filtration Rate 141 ML/MIN Clue Cells (Wet Prep) NONE SEEN Vaginal Trichomonas (Wet Prep) NONE SEEN Vaginal Yeast (Wet Prep) NONE SEEN MDM Medical Record Reviewed: Yes Supervised Visit with DESHAWN: Yes Differential Diagnosis Differential diagnosis includes cervicitis, ovarian cyst Narrative Course Exam is consistent with cervicitis Diagnosis Primary Impression: Cervicitis Scripts Doxycycline Hyclate (Doxycycline Hyclate) 100 Mg Cap 100 MG PO BID for Infection for 7 Days, #14 CAP 0 Refills Prov: Freddy Alberto MD 03/19/18 Disposition: 01 DISCHARGE HOME Condition: Stable Freddy Alberto MD Mar 19, 2018 08:53
[2018-03-19 09:14] VITALS: BP 131/66
== END 2018-03-19 09:23 | disposition home or self-care (01) ==
LOC: PHED 06:23
DX: N72 Inflammatory disease of cervix uteri (principal); D50.9 Iron deficiency anemia, unspecified; F32.9 Major depressive disorder, single episode, unspecified; I10 Essential (primary) hypertension
CPT/HCPCS: 80048; 81001; 84703; 85025; 87210; 87491; 87591; 96374; 99284; J0696

== ENCOUNTER 2018-04-26 23:46 | Emergency (ER) | payer SELFPAY ==
[~2018-04-26] VITALS: Ht 154.9 cm; Wt 71.8 kg
[~2018-04-26 23:46] MED LIST changes: +DOXY100C PO; -PROC10TA PO; -ZOFR4TAB PO; -ZOFR4TAB3 SL
[2018-04-26 23:50] VITALS: BP 133/80; PULSE 89; RESP 18; TEMP 98.6; O2SAT 100
[2018-04-27] MEDS ORDERED: SODIUM CHLOR 0.9% 1000 ML INJ 1,000 ML IV SCH (00:03)
--- NOTE | 2018-04-27 00:03 | PD ---
HPI Chief Complaint: Abdominal Pain Time Seen by Provider: 23:51 Travel History International Travel<30 days: No Contact w/Intl Traveler<30days: No Traveled to known affect area: No History of Present Illness HPI The patient is a 27-year-old female who complains of midline epigastric pain for 3 days. She has been vomiting. The patient has a history of gastroenteritis in the past. She states she does have diarrhea for the past several days. She denies any fever. She denies any melanotic or bloody stools. Her pain is midline epigastric, burning and a 7/10. She denies any possibility of being . She has never had any abdominal surgery in the past. The patient has a history of anemia which is thought to be due to heavy menstrual periods. She denies any recent syncopal or near syncopal spells. She was last transfused in December of this year. PFSH Past Medical History Hx Anticoagulant Therapy: No Anemia: Yes Depression: Yes Cardiovascular Problems: Yes (Valve regurgitation) Chemotherapy: No Cerebrovascular Accident: No Diabetes: No Diminished Hearing: No Gestational Age in Weeks: 10 Hypertension: Yes Inguinal Hernia: Yes Psychiatric: Yes Respiratory: No Immunizations Current: Yes LMP: 04/25/2018 : 3 Para: 0 Miscarriage: 1 Dilation and Curettage (D&C): Yes Past Surgical History Gynecologic Surgery: Yes (D&C) Social History Alcohol Use: Yes (rare) Tobacco Use: No Substance Use: Yes (WEED) Allergies-Medications (Allergen,Severity, Reaction): Coded Allergies: No Known Allergies (Verified Adverse Reaction, Unknown, 04/26/18) Reported Meds & Prescriptions Reported Meds & Active Scripts Active No Active Prescriptions or Reported Medications Review of Systems Except as stated in HPI: all other systems reviewed are Neg Physical Exam Narrative GENERAL: The patient is alert, oriented 3, sitting up in bed because she knows the pain is less when she sits up, in moderate apparent distress with her midline epigastric discomfort. Her vital signs are normal. The patient appears anemic. SKIN: Focused skin assessment warm/dry. HEAD: Atraumatic. Normocephalic. EYES: Pupils equal and round. No scleral icterus. No injection or drainage. ENT: No nasal bleeding or discharge. Mucous membranes pink and moist. NECK: Trachea midline. No JVD. CARDIOVASCULAR: Regular rate and rhythm. No murmur appreciated. RESPIRATORY: No accessory muscle use. Clear to auscultation. Breath sounds equal bilaterally. GASTROINTESTINAL: Abdomen soft, with tenderness to direct palpation in the midline epigastrium, nondistended. Hepatic and splenic margins not palpable. No guarding or rebound is present. No flank tenderness present. MUSCULOSKELETAL: No obvious deformities. No clubbing. No cyanosis. No edema. NEUROLOGICAL: Awake and alert. No obvious cranial nerve deficits. Motor grossly within normal limits. Normal speech. PSYCHIATRIC: Appropriate mood and affect; insight and judgment normal. Data Data Last Documented VS Vital Signs Date Time Temp Pulse Resp B/P (MAP) Pulse Ox O2 Delivery O2 Flow Rate FiO2 04/27/18 00:07 98 04/26/18 23:50 98.6 89 18 133/80 (97) Orders Orders Beta Hcg (Quant/Titer) (04/27/18 00:03) Complete Blood Count With Diff (04/27/18 00:03) Comprehensive Metabolic Panel (04/27/18 00:03) Lipase (04/27/18 00:03) Urinalysis - C+S If Indicated (04/27/18 00:03) Iv Access Insert/Monitor (04/27/18 00:03) Ecg Monitoring (04/27/18 00:03) Oximetry (04/27/18 00:03) Morphine Inj (Morphine Inj) (04/27/18 00:15) Ondansetron Inj (Zofran Inj) (04/27/18 00:15) Pantoprazole Inj (Protonix Inj) (04/27/18 00:15) Sodium Chlor 0.9% 1000 Ml Inj (Ns 1000 M (04/27/18 00:03) Sodium Chloride 0.9% Flush (Ns Flush) (04/27/18 00:15) Famotidine Inj (Pepcid Inj) (04/27/18 00:15) Al-Mag Hy-Si 40-40-4 Mg/Ml Liq (Mag-Al P (04/27/18 00:15) Lidocaine 2% Viscous (Xylocaine 2% Visco (04/27/18 00:15) Labs Laboratory Tests Test 04/27/18 00:15 04/27/18 00:20 Urine Color YELLOW Urine Turbidity CLEAR Urine pH 6.0 Urine Specific [place] 1.020 Urine Protein NEG mg/dL Urine Glucose (UA) NEG mg/dL Urine Ketones NEG mg/dL Urine Occult Blood NEG Urine Nitrite NEG Urine Bilirubin NEG Urine Urobilinogen 0.2 MG/DL Urine Leukocyte Esterase NEG Urine RBC 0-3 /hpf Urine WBC 0-2 /hpf Urine Squamous Epithelial Cells 0-5 /hpf Microscopic Urinalysis Comment CULT NOT INDICATED White Blood Count 5.7 TH/MM3 Red Blood Count 3.69 MIL/MM3 Hemoglobin 7.0 GM/DL Hematocrit 22.1 % Mean Corpuscular Volume 60.1 FL Mean Corpuscular Hemoglobin 19.0 PG Mean Corpuscular Hemoglobin Concent 31.5 % Red Cell Distribution Width 19.8 % Platelet Count 558 TH/MM3 Mean Platelet Volume 9.1 FL Neutrophils (%) (Auto) 49.8 % Lymphocytes (%) (Auto) 35.2 % Monocytes (%) (Auto) 13.8 % Eosinophils (%) (Auto) 0.8 % Basophils (%) (Auto) 0.4 % Neutrophils # (Auto) 2.9 TH/MM3 Lymphocytes # (Auto) 2.0 TH/MM3 Monocytes # (Auto) 0.8 TH/MM3 Eosinophils # (Auto) 0.0 TH/MM3 Basophils # (Auto) 0.0 TH/MM3 CBC Comment AUTO DIFF Differential Comment AUTO DIFF CONFIRMED Tear Drop Cells 1+ Ovalocytes 2+ Keratocytes 1+ Blood Urea Nitrogen 11 MG/DL Creatinine 0.65 MG/DL Random Glucose 94 MG/DL Total Protein 8.4 GM/DL Albumin 3.5 GM/DL Calcium Level 8.5 MG/DL Alkaline Phosphatase 109 U/L Aspartate Amino Transf (AST/SGOT) 31 U/L Alanine Aminotransferase (ALT/SGPT) 32 U/L Total Bilirubin 0.2 MG/DL Sodium Level 139 MEQ/L Potassium Level 3.5 MEQ/L Chloride Level 106 MEQ/L Carbon Dioxide Level 25.9 MEQ/L Anion Gap 7 MEQ/L Estimat Glomerular Filtration Rate 131 ML/MIN Lipase 137 U/L Human Chorionic Gonadotropin, Quant LESS THAN 1 MIU/ML [facility] Medical Decision Making Medical Screen Exam Complete: Yes Emergency Medical Condition: Yes Medical Record Reviewed: Yes Interpretation(s) The CBC is normal except for hemoglobin of 7 and hematocrit of 22.1. The platelet count is 558,000. The urinalysis is normal and culture is not indicated. The complete metabolic profile is normal except for a total protein of 8.4. The lipase is normal and the beta-hCG is less than 1. Differential Diagnosis Reflux esophagitis, ulcer pain, cholecystitis, gastroenteritis, pancreatitis, anemia Narrative Course The patient is anemic but she normally runs a hemoglobin around 7.0. When she was transfused in December of this year her hemoglobin was 5.9. She denies any syncopal or near syncopal spells. The patient also has reflux esophagitis. It is now 0100 in the morning and the patient feels better, her abdominal pains going away. Plan: The patient will be given prescriptions for omeprazole and Phenergan. She should follow-up with her primary care physician. Additional Instructions: As you know, elevate the head of your bed to keep the acid down in your stomach and away from the esophagus. Follow-up with your primary care physician. The Phenergan is 1 tablet every 6 hours for nausea and the omeprazole is 1 tablet daily. The omeprazole lowers your acid production. Med/Other Pt SpecificInfo: Prescription(s) given Scripts Promethazine (Phenergan) 25 Mg Tablet 25 MG PO Q6H Y for NAUSEA OR VOMITING, #30 TAB 0 Refills Prov: Isaías Blake MD 04/27/18 Omeprazole (Omeprazole) 20 Mg Tab 20 MG PO DAILY, #30 TAB 0 Refills Prov: Isaías Blake MD 04/27/18 Disposition: 01 DISCHARGE HOME Condition: Stable Isaías Blake MD Apr 27, 2018 00:03
[2018-04-27 00:07] VITALS: O2SAT 98
[2018-04-27] MEDS ORDERED: SODIUM CHLORIDE 0.9% FLUSH 10 ML FLUSH IV FLUSH PRN (00:15)
[2018-04-27] MEDS ORDERED: ONDANSETRON HCL 4 MG/2 ML VIAL IVP ONE (00:15)
[2018-04-27] MEDS ORDERED: FAMOTIDINE 20 MG/2 ML VIAL IV PUSH ONE (00:15)
[2018-04-27] MEDS ORDERED: PANTOPRAZOLE SODIUM 40 MG VIAL IVP ONE (00:15)
[2018-04-27] MEDS ORDERED: LIDOCAINE VISCOUS 2% SOLN 15 ML UDC PO ONE (00:15)
[2018-04-27] MEDS ORDERED: MORPHINE SULFATE 4 MG/ML INJ IV PUSH ONE (00:15)
[2018-04-27] MEDS ORDERED: ALUMINUM/MAGNESIUM/SIMETH 30 ML CUP PO ONE (00:15)
[2018-04-27 00:25] LABS: BILIRUBIN, URINE NEG (NEG); BLOOD, URINE NEG (NEG); GLUCOSE,URINE NEG (NEG); KETONE, URINE NEG (NEG); NITRITE,URINE NEG (NEG); URINE COLOR YELLOW (YELLW/STRAW); URINE LEUKOCYTE ESTERASE NEG (NEG)
[2018-04-27 00:32] LABS: AUTOMATED NEUTROPHIL # 2.9 TH/MM3 (1.8-7.7); BASOPHIL % 0.4 % (0.0-2.0); EOSINOPHIL % 0.8 % (0.0-4.0); HEMATOCRIT 22.1 % (35.0-46.0); LYMPH % 35.2 % (9.0-44.0); MEAN CELL VOLUME 60.1 FL (80.0-100.0); MEAN CORPUSCULAR HGB CONC 31.5 % (32.0-36.0); MEAN PLATELET VOLUME 9.1 FL (7.0-11.0); MONO % 13.8 % (0.0-8.0); MONOCYTE # 0.8 TH/MM3 (0-0.9); NEUT % 49.8 % (16.0-70.0); PLATELET COUNT 558 TH/MM3 (150-450); RED BLOOD COUNT 3.69 MIL/MM3 (4.00-5.30); RED CELL DISTRIBUTION WIDTH 19.8 % (11.6-17.2); WHITE BLOOD COUNT 5.7 TH/MM3 (4.0-11.0)
[2018-04-27 00:44] LABS: RBC, URINE 0-3 /hpf (0-3); SQUAMOUS EPITHELIAL CELL URINE 0-5 /hpf (0-5); WBC, URINE 0-2 /hpf (0-5)
[2018-04-27 00:45] LABS: CHLORIDE 106 MEQ/L (98-107); SODIUM (NA) 139 MEQ/L (136-145)
[2018-04-27 00:48] LABS: ALBUMIN 3.5 GM/DL (3.4-5.0); BICARBONATE 25.9 MEQ/L (21.0-32.0); CALCIUM 8.5 MG/DL (8.5-10.1)
[2018-04-27 00:49] LABS: BLOOD UREA NITROGEN 11 MG/DL (7-18); GLUCOSE,RANDOM 94 MG/DL (74-106)
[2018-04-27 00:51] LABS: ALT (GPT) 32 U/L (10-53); AST (GOT) 31 U/L (15-37)
[2018-04-27 00:52] LABS: CREATININE 0.65 MG/DL (0.50-1.00); GLOMERULAR FILTRATION RATE 131 ML/MIN (>89)
[2018-04-27 00:53] LABS: TOTAL BILIRUBIN ADULT 0.2 MG/DL (0.2-1.0); TOTAL PROTEIN 8.4 GM/DL (6.4-8.2)
[2018-04-27 00:54] LABS: ALKALINE PHOSPHATASE 109 U/L (45-117)
[2018-04-27 00:57] LABS: OVALOCYTES 2+ (NORMAL); TEARDROP RBCS 1+ (NORMAL)
[2018-04-27 00:58] LABS: KERATOCYTES 1+ (NORMAL)
[2018-04-27] MEDS ORDERED: OMEP20TA93 PO (01:05)
[2018-04-27] MEDS ORDERED: PROM25TA10 PO (01:05)
[2018-04-27 01:07] VITALS: BP 124/84; PULSE 79; RESP 18; O2SAT 98
== END 2018-04-27 01:20 | disposition home or self-care (01) ==
LOC: PHED 23:46
DX: K21.0 Gastro-esophageal reflux disease with esophagitis (principal); D64.9 Anemia, unspecified; F32.9 Major depressive disorder, single episode, unspecified; I10 Essential (primary) hypertension; F12.90 Cannabis use, unspecified, uncomplicated
CPT/HCPCS: 80053; 81001; 83690; 84702; 85025; 96361; 96374; 96375; 99284; C9113; J2405; J7030

== ENCOUNTER 2018-07-28 10:21 | Observation (INO) ==
[2018-07-28 11:22] LABS: Bacteria,Urine Rare /hpf; Bilirubin,Urine Negative (Negative); Clarity,Urine Hazy (Clear); Color,Urine Yellow (Yellw/Straw); Glucose,Urine (UA) Negative (Negative); Leukocyte Esterase,Urine Large (Negative); Mucus,Urine Moderate /lpf (Occasional); Nitrite,Urine Negative (Negative); Specific Gravity,Urine 1.021 (1.002-1.035); Squamous Epithelial Cell,Urine 5 /hpf (0-5); Transitional Epi Cells,Urine <1 /hpf
[2018-07-28 12:16] LABS: Baso % (Auto) 0.4 % (0.0-2.0); Eos # (Auto) 0.1 th/mm3 (0.0-0.4); Eos % (Auto) 0.9 % (0.0-4.0); Lymph # (Auto) 2.4 th/mm3 (1.0-4.8); Lymph % (Auto) 24.7 % (9.0-44.0); Mean Corpuscular Hemoglobin 16.9 pg (27.0-34.0); Mean Corpuscular Volume 55.3 fL (80.0-100.0); Mean Platelet Volume 8.5 fL (7.0-11.0); Mono # (Auto) 1.1 th/mm3 (0.0-0.9); Neut # (Auto) 5.9 th/mm3 (1.8-7.7); Platelet Count 410 th/mm3 (150-450); Red Blood Count 3.48 mil/mm3 (4.00-5.30); Red Cell Distribution Width 20.7 % (11.6-17.2); White Blood Count 9.5 th/mm3 (4.0-11.0)
[2018-07-28 12:17] LABS: Mean Corpuscular HGB Conc 30.5 % (32.0-36.0)
[2018-07-28 12:20] LABS: Hemoglobin 5.9 gm/dL (11.6-15.3)
[2018-07-28 12:21] LABS: Hematocrit 19.2 % (35.0-46.0)
[2018-07-28 12:29] LABS: Anion Gap 7 meq/L (5-15); Blood Urea Nitrogen 9 mg/dL (7-18); Calcium 8.5 mg/dL (8.5-10.1); Carbon Dioxide 24.8 meq/L (21.0-32.0); Chloride 103 meq/L (98-107); Glomerular Filtration Rate Greater Than 89 mL/min (>89); Glucose,Random 89 mg/dL (74-106); Potassium 3.7 meq/L (3.5-5.1); Sodium 135 meq/L (136-145)
--- NOTE | 2018-07-28 12:36 | ED ---
HPI General Chief complaint: Urogenital-Female Stated complaint: Medical Time Seen by Provider: 07/28/18 11:15 Source: patient Mode of arrival: ambulatory Limitations: no limitations History of Present Illness HPI narrative: 27-year-old female that presents to the ED for evaluation of vaginal discharge and abdominal pain. Per patient she is had this since this morning. She denies any STD exposure. Per patient discharge is yellow and greenish and smelly. No blood. She states that she is about 9 weeks . She has had an ultrasound by her DEVELOPMENT SCIENTIST and show IUP. She denies any other medical issues. Per patient she also has urinary-like symptoms. She states that he does some burning but feels like she has pressure on her bladder. She is never had that symptom before although she has had UTIs in the past. Per patient the pain feels more like a cramping and pressure and is 4 out of 10. Has not taken anything for this. She does feel nauseous and has some vomiting but this has not changed from her . No chest pain or shortness of breath. No urinary or bowel movement issues. She does have a history of heavy menses with chronic anemia. Related Data Home Medications Medication Instructions Recorded Confirmed prenat.vits,anne marie,[id number] 1 tab PO DAILY 07/11/18 07/30/18 [ Vitamin] Previous Rx's Medication Instructions Recorded metronidazole [Flagyl] 500 mg PO BID #12 tab 07/29/18 nitrofurantoin monohyd/m-cryst 100 mg PO Q12H #12 cap 07/29/18 [Macrobid] Allergies Allergy/AdvReac Type Severity Reaction Status Date / Time No Known Allergies Allergy Verified 07/30/18 11:14 Review of Systems ROS: all other systems reviewed are negative [facility] Medical History Medical History History of blood transfusion (Acute) Sickle cell trait (Acute) History of uterine fibroid (Acute) Surgical History Surgical History Hx of dilation and curettage (Acute) No history of previous surgery (Acute) Family History Family History Other Breast cancer in female Social History Social History Substance History: No History of Abuse Second Hand Smoke Exposure: No Smoking Status: Never smoker Tobacco Type: Cigarettes How Often Do You Have a Drink Containing Alcohol: Never Recent Travel in [facility] within the Last 8 Weeks: No Recent Out of Country Travel within the Last 8 Weeks: No Substance Abuse Detail Marijuana: Substance Use Status: Active Route Used Substance Abuse: Inhalation Immunization History Tetanus Immunization: Unsure Hx Influenza Vaccine This Season: No Exam Narrative Exam Narrative: GENERAL: Well appearing SKIN: Focused skin assessment warm/dry. HEAD: Atraumatic. Normocephalic. EYES: Pupils equal and round. No scleral icterus. No injection or drainage. ENT: No nasal bleeding or discharge. Mucous membranes pink and moist. Tongue is midline. No uvula deviation. NECK: Trachea midline. No JVD. CARDIOVASCULAR: Regular rate and rhythm. No murmur appreciated. RESPIRATORY: No accessory muscle use. Clear to auscultation. Breath sounds equal bilaterally. GASTROINTESTINAL: Abdomen soft, non-tender, nondistended. Hepatic and splenic margins not palpable. Pelvic exam: Show what appears to be whitish discharge with no sign of bleeding. Also appears to be closed. No obvious deformity or adnexal tenderness. Patient does have an enlarged uterus consistent with . MUSCULOSKELETAL: No obvious deformities. No clubbing. No cyanosis. No edema. Full range of motion of the upper and lower extremities bilaterally. 2+ pulses bilaterally. NEUROLOGICAL: Awake and alert. No obvious cranial nerve deficits. Motor grossly within normal limits. Normal speech. PSYCHIATRIC: Appropriate mood and affect; insight and judgment normal. Course Initial Documented Vital Signs Temperature 98.4 F 07/28/18 10:38 Pulse Rate 97 H 07/28/18 10:38 Respiratory Rate 16 07/28/18 10:38 Blood Pressure 117/68 07/28/18 10:38 Pulse Oximetry 100 07/28/18 10:38 Last Documented Vital Signs Temperature 98.2 F 07/29/18 16:25 Pulse Rate 80 07/29/18 17:37 Respiratory Rate 17 07/29/18 16:30 Blood Pressure 117/63 07/29/18 17:37 Pulse Oximetry 96 07/29/18 17:37 Medical Decision Making DESHAWN Attestation DESHAWN supervised visit: Yes Attestation: I, Dr. Chritsopher, have reviewed the advance practice practitioner's documentation and am in agreement, met with the patient face to face, made the diagnosis, and the medical decision making was done by me. *My assessment and Findings: Patient seen and examined by me in addition to Yoni Massey PA-C. Patient tells me she has a history of sickle cell anemia though labs do not support this. She has no pain. Her hemoglobin usually runs about 7 7-1/2. Today she is 5-1/2. She has no symptoms of hypovolemia. She is 9 weeks . Has history of vaginal discharge pelvic exam pending by Yoni Massey, I discussed with the patient that I would recommend that she be transfused and admitted to the hospital I believe the benefits outweigh the risks to make sure that the placenta is adequately perfused. Discussed R/B/C/A of transfusion to her and she agrees for transfusion. MDM Narrative Medical decision making narrative: 27-year-old female that presents to the ED for evaluation of lower abdominal pain and with discharge. Patient was properly examined and was found to have signs and symptoms concerning for cervicitis with UTI. Labs and imaging order. Labs and imaging were consistent with IUP as well as what appears to be clue cells and possible UTI. At this time recommendations for treatment of this. CBC did show what appears to be severe anemia. 5.9 hemoglobin. Because the patient's we do recommend admission for transfusion. She does not appear to have any signs of bleeding. Per patient she does have sickle cell trait and has had transfusions in the past. She does have chronic anemia she states that she has fibrous as well as heavy menses. Patient agrees with admission for transfusion. Case discussed with Dr. connors who agrees to admission to his service for transfusion. Medical Screen Exam Complete: Yes Emergency Medical Condition: Yes Differential Diagnosis Differential Diagnosis: UTI versus anemia versus bacterial vaginosis versus yeast infection versus cervicitis Medical Records Medical records reviewed: Yes I reviewed the patient's medical records. Lab Data Lab results reviewed: Yes I reviewed the patient's lab results. Lab results narrative: Wet prep positive for clue cells. Urine shows signs of UTI. Beta elevated Result diagrams: 07/29/18 17:11 07/29/18 05:45 POC Results POC Urine Results Positive Lab Results 07/28/18 07/28/18 07/28/18 Range/Units 10:51 11:50 11:50 WBC 9.5 (4.0-11.0) th/mm3 RBC 3.48 L (4.00-5.30) mil/mm3 Hgb 5.9 L* (11.6-15.3) gm/dL Hct 19.2 L* (35.0-46.0) % MCV 55.3 L (80.0-100.0) fL MCH 16.9 L (27.0-34.0) pg MCHC 30.5 L (32.0-36.0) % RDW 20.7 H (11.6-17.2) % Plt Count 410 (150-450) th/mm3 MPV 8.5 (7.0-11.0) fL Prelim Diff (Auto) Slide review pending Neut % (Auto) 62.0 (16.0-70.0) % Lymph % (Auto) 24.7 (9.0-44.0) % [place] % (Auto) 12.0 H (0.0-8.0) % Eos % (Auto) 0.9 (0.0-4.0) % Baso % (Auto) 0.4 (0.0-2.0) % Neut # (Auto) 5.9 (1.8-7.7) th/mm3 Lymph # (Auto) 2.4 (1.0-4.8) th/mm3 [place] # (Auto) 1.1 H (0.0-0.9) th/mm3 Eos # (Auto) 0.1 (0.0-0.4) th/mm3 Baso # (Auto) 0.0 (0.0-0.2) th/mm3 WBC Differential . Diff Scan Auto diff confirmed Differential Comment . Target Cells 1+ H (None) Tear Drop Cells 1+ H (None) Ovalocytes 1+ H (None) Keratocytes Occ H (None) Sodium 135 L (136-145) meq/L Potassium 3.7 (3.5-5.1) meq/L Chloride 103 (98-107) meq/L Carbon Dioxide 24.8 (21.0-32.0) meq/L Anion Gap 7 (5-15) meq/L BUN 9 (7-18) mg/dL Creatinine 0.46 L (0.50-1.00) mg/dL Estimated GFR Greater than 89 (>89) mL/min Random Glucose 89 (74-106) mg/dL Calcium 8.5 (8.5-10.1) mg/dL Total Bilirubin (0.2-1.0) mg/dL AST (15-37) U/L ALT (10-53) U/L Alkaline Phosphatase (45-117) U/L Total Protein (6.4-8.2) g/dL Albumin (3.4-5.0) g/dL Beta HCG, Quant 91407 H (0-5) mIU/mL Urine Color Yellow (Yellw/Straw) Urine Clarity Hazy H (Clear) Urine pH 6.0 (5.0-8.5) Ur Specific [place] 1.021 (1.002-1.035) Urine Protein Negative (Neg-Trace) mg/dL Urine Glucose (UA) Negative (Negative) mg/dL Urine Ketones Negative (Negative) mg/dL Urine Occult Blood Negative (Negative) Urine Nitrate Negative (Negative) Urine Bilirubin Negative (Negative) Urine Urobilinogen Less than 2 (Less than 2) mg/dL Ur Leukocyte Esterase Large H (Negative) Urine RBC 14 H (0-3) /hpf Urine WBC 48 H (0-5) /hpf Ur Squamous Epith Cells 5 (0-5) /hpf Ur Transition Epith Cell <1 (None) /hpf Urine Bacteria Rare H (None) /hpf Urine Mucus Moderate H (Occasional) /lpf Micro UA Comment Culture indicated Ur Microscopic Review Not Reportable Urine Culture Comments Culture indicated Clue Cells (Wet Prep) (None Seen) Trichomonas (Wet Prep) (None Seen) Yeast (Wet Prep) (None Seen) Chlam trachomat DNA PCR (Not Detect) N.gonorrhoeae DNA (PCR) (Not Detect) Blood Type Antibody Screen MTS Gel Crossmatch 07/28/18 07/28/18 07/28/18 Range/Units 11:50 12:33 13:20 WBC (4.0-11.0) th/mm3 RBC (4.00-5.30) mil/mm3 Hgb (11.6-15.3) gm/dL Hct (35.0-46.0) % MCV (80.0-100.0) fL MCH (27.0-34.0) pg MCHC (32.0-36.0) % RDW (11.6-17.2) % Plt Count (150-450) th/mm3 MPV (7.0-11.0) fL Prelim Diff (Auto) Neut % (Auto) (16.0-70.0) % Lymph % (Auto) (9.0-44.0) % [place] % (Auto) (0.0-8.0) % Eos % (Auto) (0.0-4.0) % Baso % (Auto) (0.0-2.0) % Neut # (Auto) (1.8-7.7) th/mm3 Lymph # (Auto) (1.0-4.8) th/mm3 [place] # (Auto) (0.0-0.9) th/mm3 Eos # (Auto) (0.0-0.4) th/mm3 Baso # (Auto) (0.0-0.2) th/mm3 WBC Differential Diff Scan Differential Comment Target Cells (None) Tear Drop Cells (None) Ovalocytes (None) Keratocytes (None) Sodium (136-145) meq/L Potassium (3.5-5.1) meq/L Chloride (98-107) meq/L Carbon Dioxide (21.0-32.0) meq/L Anion Gap (5-15) meq/L BUN (7-18) mg/dL Creatinine (0.50-1.00) mg/dL Estimated GFR (>89) mL/min Random Glucose (74-106) mg/dL Calcium (8.5-10.1) mg/dL Total Bilirubin (0.2-1.0) mg/dL AST (15-37) U/L ALT (10-53) U/L Alkaline Phosphatase (45-117) U/L Total Protein (6.4-8.2) g/dL Albumin (3.4-5.0) g/dL Beta HCG, Quant (0-5) mIU/mL Urine Color (Yellw/Straw) Urine Clarity (Clear) Urine pH (5.0-8.5) Ur Specific [place] (1.002-1.035) Urine Protein (Neg-Trace) mg/dL Urine Glucose (UA) (Negative) mg/dL Urine Ketones (Negative) mg/dL Urine Occult Blood (Negative) Urine Nitrate (Negative) Urine Bilirubin (Negative) Urine Urobilinogen (Less than 2) mg/dL Ur Leukocyte Esterase (Negative) Urine RBC (0-3) /hpf Urine WBC (0-5) /hpf Ur Squamous Epith Cells (0-5) /hpf Ur Transition Epith Cell (None) /hpf Urine Bacteria (None) /hpf Urine Mucus (Occasional) /lpf Micro UA Comment Ur Microscopic Review Urine Culture Comments Clue Cells (Wet Prep) (None Seen) Trichomonas (Wet Prep) (None Seen) Yeast (Wet Prep) (None Seen) Chlam trachomat DNA PCR Not detected (Not Detect) N.gonorrhoeae DNA (PCR) Not detected (Not Detect) Blood Type O Positive Antibody Screen Negative MTS Gel Crossmatch See Detail 07/28/18 07/28/18 07/29/18 Range/Units 13:20 21:57 05:45 WBC 9.7 (4.0-11.0) th/mm3 RBC 4.02 (4.00-5.30) mil/mm3 Hgb 7.4 L 7.3 L (11.6-15.3) gm/dL Hct 23.5 L 23.4 L (35.0-46.0) % MCV 58.3 L (80.0-100.0) fL MCH 18.2 L (27.0-34.0) pg MCHC 31.3 L (32.0-36.0) % RDW 24.9 H D (11.6-17.2) % Plt Count 406 (150-450) th/mm3 MPV 8.8 (7.0-11.0) fL Prelim Diff (Auto) Neut % (Auto) 64.4 (16.0-70.0) % Lymph % (Auto) 24.0 (9.0-44.0) % [place] % (Auto) 10.5 H (0.0-8.0) % Eos % (Auto) 0.8 (0.0-4.0) % Baso % (Auto) 0.3 (0.0-2.0) % Neut # (Auto) 6.2 (1.8-7.7) th/mm3 Lymph # (Auto) 2.3 (1.0-4.8) th/mm3 [place]ie # (Auto) 1.0 H (0.0-0.9) th/mm3 Eos # (Auto) 0.1 (0.0-0.4) th/mm3 Baso # (Auto) 0.0 (0.0-0.2) th/mm3 WBC Differential . Diff Scan Differential Comment Auto diff final Target Cells (None) Tear Drop Cells (None) Ovalocytes (None) Keratocytes (None) Sodium (136-145) meq/L Potassium (3.5-5.1) meq/L Chloride (98-107) meq/L Carbon Dioxide (21.0-32.0) meq/L Anion Gap (5-15) meq/L BUN (7-18) mg/dL Creatinine (0.50-1.00) mg/dL Estimated GFR (>89) mL/min Random Glucose (74-106) mg/dL Calcium (8.5-10.1) mg/dL Total Bilirubin (0.2-1.0) mg/dL AST (15-37) U/L ALT (10-53) U/L Alkaline Phosphatase (45-117) U/L Total Protein (6.4-8.2) g/dL Albumin (3.4-5.0) g/dL Beta HCG, Quant (0-5) mIU/mL Urine Color (Yellw/Straw) Urine Clarity (Clear) Urine pH (5.0-8.5) Ur Specific [place] (1.002-1.035) Urine Protein (Neg-Trace) mg/dL Urine Glucose (UA) (Negative) mg/dL Urine Ketones (Negative) mg/dL Urine Occult Blood (Negative) Urine Nitrate (Negative) Urine Bilirubin (Negative) Urine Urobilinogen (Less than 2) mg/dL Ur Leukocyte Esterase (Negative) Urine RBC (0-3) /hpf Urine WBC (0-5) /hpf Ur Squamous Epith Cells (0-5) /hpf Ur Transition Epith Cell (None) /hpf Urine Bacteria (None) /hpf Urine Mucus (Occasional) /lpf Micro UA Comment Ur Microscopic Review Urine Culture Comments Clue Cells (Wet Prep) Present H (None Seen) Trichomonas (Wet Prep) None seen (None Seen) Yeast (Wet Prep) None seen (None Seen) Chlam trachomat DNA PCR (Not Detect) N.gonorrhoeae DNA (PCR) (Not Detect) Blood Type Antibody Screen MTS Gel Crossmatch 07/29/18 07/29/18 07/29/18 Range/Units 05:45 10:57 17:11 WBC (4.0-11.0) th/mm3 RBC (4.00-5.30) mil/mm3 Hgb 9.9 L D (11.6-15.3) gm/dL Hct 31.3 L (35.0-46.0) % MCV (80.0-100.0) fL MCH (27.0-34.0) pg MCHC (32.0-36.0) % RDW (11.6-17.2) % Plt Count (150-450) th/mm3 MPV (7.0-11.0) fL Prelim Diff (Auto) Neut % (Auto) (16.0-70.0) % Lymph % (Auto) (9.0-44.0) % [place] % (Auto) (0.0-8.0) % Eos % (Auto) (0.0-4.0) % Baso % (Auto) (0.0-2.0) % Neut # (Auto) (1.8-7.7) th/mm3 Lymph # (Auto) (1.0-4.8) th/mm3 [place] # (Auto) (0.0-0.9) th/mm3 Eos # (Auto) (0.0-0.4) th/mm3 Baso # (Auto) (0.0-0.2) th/mm3 WBC Differential Diff Scan Differential Comment Target Cells (None) Tear Drop Cells (None) Ovalocytes (None) Keratocytes (None) Sodium 138 (136-145) meq/L Potassium 3.5 (3.5-5.1) meq/L Chloride 105 (98-107) meq/L Carbon Dioxide 24.8 (21.0-32.0) meq/L Anion Gap 8 (5-15) meq/L BUN 6 L (7-18) mg/dL Creatinine 0.51 (0.50-1.00) mg/dL Estimated GFR Greater than 89 (>89) mL/min Random Glucose 82 (74-106) mg/dL Calcium 8.6 (8.5-10.1) mg/dL Total Bilirubin 0.4 (0.2-1.0) mg/dL AST 16 (15-37) U/L ALT 21 (10-53) U/L Alkaline Phosphatase 69 (45-117) U/L Total Protein 7.6 (6.4-8.2) g/dL Albumin 3.1 L (3.4-5.0) g/dL Beta HCG, Quant (0-5) mIU/mL Urine Color (Yellw/Straw) Urine Clarity (Clear) Urine pH (5.0-8.5) Ur Specific [place] (1.002-1.035) Urine Protein (Neg-Trace) mg/dL Urine Glucose (UA) (Negative) mg/dL Urine Ketones (Negative) mg/dL Urine Occult Blood (Negative) Urine Nitrate (Negative) Urine Bilirubin (Negative) Urine Urobilinogen (Less than 2) mg/dL Ur Leukocyte Esterase (Negative) Urine RBC (0-3) /hpf Urine WBC (0-5) /hpf Ur Squamous Epith Cells (0-5) /hpf Ur Transition Epith Cell (None) /hpf Urine Bacteria (None) /hpf Urine Mucus (Occasional) /lpf Micro UA Comment Ur Microscopic Review Urine Culture Comments Clue Cells (Wet Prep) (None Seen) Trichomonas (Wet Prep) (None Seen) Yeast (Wet Prep) (None Seen) Chlam trachomat DNA PCR (Not Detect) N.gonorrhoeae DNA (PCR) (Not Detect) Blood Type Antibody Screen MTS Gel Crossmatch See Detail Imaging Data Attestation: I personally reviewed and interpreted this imaging study as follows : Radiologist's impression: Pelvic/Transvag US 07/28/18 11:50 CONCLUSION: 1. Single viable intrauterine gestation identified with a heart rate of 178 bpm. 2. Uterine fibroid. Pelvic/Transvag US 07/29/18 00:00 CONCLUSION: 1. Viable IUP and large uterine fibroid. Discharge Plan Discharge Disposition Patient Disposition: 30 Still Patient Discharge Condition Condition: Good Discharge Order Discharge Orders: Discharge Order (Routine); Ordered 07/29/18 Ordered By: Thendrex Katie Discharge Details Anticipated Discharge Date: 07/29/18 Discharge Comment: d/c if repeat Hgb is >8.8 and repeat US shows viability Diagnosis: Anemia, Bacterial vaginosis, Cystitis, Physicians Team ED Provider: Sukumar Christopher ED Midlevel Provider: Yoni Massey Primary Care Provider: Primary Care Physici,Misty Attending Provider: Mukund Wilson Other Providers: Andah,[place] K Status ED Status: Left Department Discharge Information Discharge Date/Time: 07/28/18 16:05
[2018-07-28 12:45] LABS: Beta HCG,Quantitative 71902 mIU/mL (0-5)
[2018-07-28 12:47] LABS: Ovalocytes 1+
[2018-07-28 12:48] LABS: Tear Drop Cells 1+
[2018-07-28 12:52] LABS: Target Cells 1+
--- NOTE | 2018-07-28 14:00 | US ---
EXAM DATE: 07/28/2018 1:48 PM EDT AGE/SEX: 27 years / Female INDICATIONS: Vaginal itching. CLINICAL DATA: This is the patient's initial encounter. Patient reports that signs and symptoms have been present for 1 day and indicates a pain score of 0/10. MEDICAL/SURGICAL HISTORY: . Uterine fibroid. Sickle cell trait. None. COMPARISON: [facility], US PELVIC ([facility] PREG/ECT) W TV, 07/11/2018. . TECHNIQUE: Real-time ultrasound of the pelvis was performed using an endovaginal transducer. [facility] [place] MEASUREMENTS: Uterus:__15.2 x 11.2 x 8.6 cm Endometrial Stripe:__>20 mm Right Ovary:__ 2.6 x 1.6 x 1.9 cm Left Ovary:__ . Not visualized. FINDINGS: Uterus: Intrauterine gestational sac with an estimated gestational age of 9 weeks 0 days based on me an sac diameter and 9 weeks 4 days based on crown-rump length measurement of the pole. he art rate of 178 bpm is noted. There is a large heterogeneous solid mass at the fundal level measuring 9.4 x 7.3 cm x 7.5 cm characteristic of a fibroid. Right Ovary: Ovary contains no mass or significant cystic lesion. Left Ovary: Not visualized. Other: None. CONCLUSION: 1. Single viable intrauterine gestation identified with a heart rate of 178 bpm. 2. Uterine fibroid. Electronically signed by: Gary Hennessy MD 07/28/2018 1:58 PM EDT
[2018-07-28] MEDS ORDERED: Nitrofurantoin Monohydrate-Macrocrystal 100 MG Capsule PO ONE (14:41)
[2018-07-28] MEDS ORDERED: Acetaminophen 325 MG Tablet PO PRN (15:05)
[2018-07-28] MEDS ORDERED: Temazepam 15 MG Capsule PO PRN (15:05)
--- NOTE | 2018-07-28 15:16 | P.HP ---
History of Present Illness Primary Care Physician: No Primary Care Physician Chief Complaint: Vaginal discharge History of Present Illness: 27-year-old female who happens to be 9 weeks , presented to the ED for evaluation of acute onset of white vaginal discharge associated with a foul odor and pelvic discomfort. H&H was noted to be 5.9/19.2 and patient denies any vaginal or GI bleed. She has had 2 prior episodes of blood transfusion in the past. She has been complaining of fatigue lately with some dyspnea however denies any chest pain. Patient was also found to have bacterial vaginosis on exam with abnormal UA. She Is currently not established with OB - Diagnosis (1) UTI (urinary tract infection) during (2) Anemia (3) Bacterial vaginosis (4) Review of Systems All other systems reviewed negative except as stated in HPI PMFSH - History History Provided By: Patient - Medical History Medical History: Medical History (Last Reviewed 07/28/18 @ 14:47 by ASHLEY Hughes) History of blood transfusion Sickle cell trait History of uterine fibroid - Surgical History Surgical History: Surgical History (Last Reviewed 07/28/18 @ 14:47 by ASHLEY Hughes) Hx of dilation and curettage No history of previous surgery - Family History Family History: Family History (Last Updated 07/28/18 @ 15:12 by Hany Peters MD) Other Breast cancer in female - Tobacco History Second Hand Smoke Exposure: No Tobacco Use In Past 30 Days: No Smoking Status: Never smoker Tobacco Type: Cigarettes - Alcohol History How Often Do You Have a Drink Containing Alcohol: Never - Substance Use History Substance History: Active Abuse - Substance Use Type Marijuana Status: Active Route Used: Inhalation - Travel History Recent Travel in the [place] Within the Last 8 Weeks: No Recent Travel Out of the Country Within the Last 8 Weeks: No - Immunization History Tetanus Immunization: Unsure Hx Influenza Vaccine This Season: No Medications and Allergies Active Medications: Active Medications Acetaminophen (Tylenol) 650 mg PO Q4H PRN PRN Reason: Temp > 100.4 Nitrofurantoin Macrocrystals (Macrobid) 100 mg PO BIDPC RUSSELL Non-Formulary Medication (Prenat.Vits,Anne Marie,Sej-Vkqd-Edevb [ Vitamin]) 1 tab PO DAILY RUSSELL Ondansetron HCl (Zofran Inj) 4 mg IV.PUSH Q6H PRN PRN Reason: NAUSEA OR VOMITING Temazepam (Restoril) 15 mg PO HS PRN PRN Reason: INSOMNIA Allergies Allergy/AdvReac Type Severity Reaction Status Date / Time No Known Allergies Allergy Verified 07/28/18 11:20 Home Medications Medication Instructions Recorded Confirmed Type prenat.vits,anne marie,sdz-kcfj-kelyj 1 tab PO DAILY 07/11/18 07/28/18 History [ Vitamin] Exam Vital signs: Vital Signs 07/28/18 10:38 07/28/18 13:00 07/28/18 14:42 Temperature 98.4 F 98.6 F Pulse Rate 97 H 92 H 92 H Respiratory Rate 16 20 18 Blood Pressure 117/68 122/63 112/53 L Pulse Oximetry 100 100 100 Intake & Output 07/27/18 07/28/18 07/28/18 18:59 06:59 18:59 Intake Total 0 / 0 Balance 0 / 0 Weight 74.843 kg Intake: Intake (Blood Product) Amt 0 / 0 Rbc As-3 Leukoreduced Unit 0 / 0 [id number] Narrative: GENERAL: NAD SKIN: Warm and dry. HEAD: Normocephalic. EYES: No scleral icterus. No injection or drainage. NECK: Supple, trachea midline. No JVD or lymphadenopathy. CARDIOVASCULAR: Regular rate and rhythm without murmurs, gallops, or rubs. RESPIRATORY: Breath sounds equal bilaterally. No accessory muscle use. GASTROINTESTINAL: Gravid ,Abdomen soft, non-tender, nondistended. MUSCULOSKELETAL: No cyanosis, or edema. BACK: Nontender without obvious deformity. No CVA tenderness. Results - Labs CBC & Chem 7: 07/28/18 11:50 07/28/18 11:50 Labs: Laboratory Results - last 24 hr 07/28/18 07/28/18 07/28/18 10:51 11:50 11:50 WBC 9.5 RBC 3.48 L Hgb 5.9 L* Hct 19.2 L* MCV 55.3 L MCH 16.9 L MCHC 30.5 L RDW 20.7 H Plt Count 410 MPV 8.5 Prelim Diff (Auto) Slide review pending Neut % (Auto) 62.0 Lymph % (Auto) 24.7 [place] % (Auto) 12.0 H Eos % (Auto) 0.9 Baso % (Auto) 0.4 Neut # (Auto) 5.9 Lymph # (Auto) 2.4 [place] # (Auto) 1.1 H Eos # (Auto) 0.1 Baso # (Auto) 0.0 WBC Differential . Diff Scan Auto diff confirmed Differential Comment . Target Cells 1+ H Tear Drop Cells 1+ H Ovalocytes 1+ H Keratocytes Occ H Sodium 135 L Potassium 3.7 Chloride 103 Carbon Dioxide 24.8 Anion Gap 7 BUN 9 Creatinine 0.46 L Estimated GFR Greater than 89 Random Glucose 89 Calcium 8.5 Beta HCG, Quant 13200 H Urine Color Yellow Urine Clarity Hazy H Urine pH 6.0 Ur Specific [place] 1.021 Urine Protein Negative Urine Glucose (UA) Negative Urine Ketones Negative Urine Occult Blood Negative Urine Nitrate Negative Urine Bilirubin Negative Urine Urobilinogen Less than 2 Ur Leukocyte Esterase Large H Urine RBC 14 H Urine WBC 48 H Ur Squamous Epith Cells 5 Ur Transition Epith Cell <1 Urine Bacteria Rare H Urine Mucus Moderate H Micro UA Comment Culture indicated Ur Microscopic Review Not Reportable Urine Culture Comments Culture indicated Clue Cells (Wet Prep) Trichomonas (Wet Prep) Yeast (Wet Prep) Blood Type Antibody Screen MTS Gel Crossmatch 07/28/18 07/28/18 07/28/18 11:50 12:33 13:20 WBC RBC Hgb Hct MCV MCH MCHC RDW Plt Count MPV Prelim Diff (Auto) Neut % (Auto) Lymph % (Auto) [place] % (Auto) Eos % (Auto) Baso % (Auto) Neut # (Auto) Lymph # (Auto) [place] # (Auto) Eos # (Auto) Baso # (Auto) WBC Differential Diff Scan Differential Comment Target Cells Tear Drop Cells Ovalocytes Keratocytes Sodium Potassium Chloride Carbon Dioxide Anion Gap BUN Creatinine Estimated GFR Random Glucose Calcium Beta HCG, Quant Urine Color Urine Clarity Urine pH Ur Specific [place] Urine Protein Urine Glucose (UA) Urine Ketones Urine Occult Blood Urine Nitrate Urine Bilirubin Urine Urobilinogen Ur Leukocyte Esterase Urine RBC Urine WBC Ur Squamous Epith Cells Ur Transition Epith Cell Urine Bacteria Urine Mucus Micro UA Comment Ur Microscopic Review Urine Culture Comments Clue Cells (Wet Prep) Present H Trichomonas (Wet Prep) None seen Yeast (Wet Prep) None seen Blood Type O Positive Antibody Screen Negative MTS Gel Crossmatch See Detail - Imaging Impressions Pelvic/Transvag US 07/28/18 11:50 CONCLUSION: 1. Single viable intrauterine gestation identified with a heart rate of 178 bpm. 2. Uterine fibroid. Caprini VTE Risk Assessment Caprini VTE Risk Assessment: No/Low Risk (score <= 1) Caprini Risk Assessment Model: Point Value = 1 Point Value = 2 Point Value = 3 Point Value = 5 Age 41-60 Minor surgery BMI > 25 kg/m2 Swollen legs Varicose veins or History of unexplained or recurrent spontaneous Oral contraceptives or hormone replacement Sepsis (< 1 month) Serious lung disease, including pneumonia (< 1 month) Abnormal pulmonary function Acute myocardial infarction Congestive heart failure (< 1 month) History of inflammatory bowel disease Medical patient at bed rest Age 61-74 Arthroscopic surgery Major open surgery (> 45 min) Laparoscopic surgery (> 45 min) Malignancy Confined to bed (> 72 hours) Immobilizing plaster cast Central venous access Age >= 75 History of VTE Family history of VTE Factor V Leiden Prothrombin [id number] Lupus anticoagulant Anticardiolipin antibodies Elevated serum homocysteine Heparin-induced thrombocytopenia Other congenital or acquired thrombophilia Stroke (< 1 month) Elective arthroplasty Hip, pelvis, or leg fracture Acute spinal cord injury (< 1 month) Prophylaxis Regimen: Total Risk Factor Score Risk Level Prophylaxis Regimen 0-1 Low Early ambulation 2 Moderate Order ONE of the following: *Sequential Compression Device (SCD) *Heparin 5000 units SQ BID 3-4 Higher Order ONE of the following medications: *Heparin 5000 units SQ TID *Enoxaparin/Lovenox 40 mg SQ daily (WT < 150 kg, CrCl > 30 mL/min) *Enoxaparin/Lovenox 30 mg SQ daily (WT < 150 kg, CrCl > 10-29 mL/min) *Enoxaparin/Lovenox 30 mg SQ BID (WT < 150 kg, CrCl > 30 mL/min) AND/OR *Sequential Compression Device (SCD) 5 or more Highest Order ONE of the following medications: *Heparin 5000 units SQ TID (Preferred with Epidurals) *Enoxaparin/Lovenox 40 mg SQ daily (WT < 150 kg, CrCl > 30 mL/min) *Enoxaparin/Lovenox 30 mg SQ daily (WT < 150 kg, CrCl > 10-29 mL/min) *Enoxaparin/Lovenox 30 mg SQ BID (WT < 150 kg, CrCl > 30 mL/min) AND *Sequential Compression Device (SCD) Assessment and Plan - Assessment (1) UTI (urinary tract infection) during Code(s): O23.40 - Unspecified infection of urinary tract in , unspecified trimester Status: Acute (2) Anemia Code(s): D64.9 - Anemia, unspecified Status: Acute (3) Bacterial vaginosis Code(s): N76.0 - Acute vaginitis; B96.89 - Other specified bacterial agents as the cause of diseases classified elsewhere Status: Acute (4) Code(s): Z34.90 - Encounter for supervision of normal , unspecified, unspecified trimester Status: Acute - Plan 27-year-old female with Intrauterine Outpatient follow-up with OB vitamin Anemia of iron deficiency Transfuse 2 units packed red blood cell Monitor H&H UTI in Start Macrobid 100 mg p.o. twice daily 7 days Bacterial vaginosis Start Flagyl 500 mg p.o. twice daily 7 days DVT prophylaxis:Low risk for VTE, encourage ambulation
[2018-07-28] MEDS: Nitrofurantoin Monohydrate-Macrocrystal 100 MG Capsule PO SCH (19:35)
--- NOTE | 2018-07-28 19:57 | P.HPOB ---
History of Present Illness Primary Care Physician: No Primary Care Physician Chief Complaint: Vaginal discharge, vaginal itching, vaginal bleed. History of Present Illness: 27-year , admitted for severe anemia with Hg of 5.9g/dL. Pt presented with c/o vaginal discharge and itching. Workup with wet prep shows BV, and UA suggested UTI. Pt states LMP was 05/22/2018 and she had a positive test at home. Ultrasound here confirmed viable IUP measuring 9 weeks and 4 days by CRL. Patient has no current OBGYN. Patient has a long history of anemia likely from abnormal uterine bleeding. Periods are regular but heavy with large blood clots and clotting. Pt has known uterine fibroids , and on US here measure 9.4x 7.3x 7.5cm. She has had 2 prior blood transfusions for anemia. Patient states that her Hg normally is around 6g/dL. Pt likely has chronic anemia, because she states she 'normally' has some shortness of breadth. She has sickle cell trait only. she is RHESUS POSITIVE. We were consulted for new onset bright red blood on pad, starting about 30 minutes ago. Pt denies any abdominal pain. Bleeding appears to have slowed down now. Weeks Gestation:: 9 Para: 0 : 2 Total # of Miscarriage(s): 1 Review of Systems All other systems reviewed negative except as stated in HPI Constitutional: Reports fatigue Cardiovascular: Reports shortness of breath Genitourinary: Reports vaginal discharge, Reports vaginal itching PMFSH - History History Provided By: Patient - Medical History Medical History: Medical History (Last Reviewed 07/28/18 @ 14:47 by ASHLEY Hughes) History of blood transfusion Sickle cell trait History of uterine fibroid - Surgical History Surgical History: Surgical History (Last Reviewed 07/28/18 @ 14:47 by ASHLEY Hughes) Hx of dilation and curettage No history of previous surgery - Family History Family History: Family History (Last Updated 07/28/18 @ 15:12 by Hany Peters MD) Other Breast cancer in female - Tobacco History Second Hand Smoke Exposure: No Tobacco Use In Past 30 Days: No Smoking Status: Never smoker Tobacco Type: Cigarettes - Alcohol History How Often Do You Have a Drink Containing Alcohol: Never - Substance Use History Substance History: Past History - Substance Use Type Marijuana Status: Active Route Used: Inhalation - Travel History Recent Travel in the [place] Within the Last 8 Weeks: No Recent Travel Out of the Country Within the Last 8 Weeks: No - Immunization History Tetanus Immunization: Unsure Hx Influenza Vaccine This Season: No Medications and Allergies Active Medications: Active Medications Acetaminophen (Tylenol) 650 mg PO Q4H PRN PRN Reason: Temp > 100.4 Metronidazole (Flagyl) 500 mg PO Q12HR RUSSELL Nitrofurantoin Macrocrystals (Macrobid) 100 mg PO BIDPC [facility] Last Admin: 07/28/18 19:35 Dose: 100 mg Ondansetron HCl (Zofran Inj) 4 mg IV.PUSH Q6H PRN PRN Reason: NAUSEA OR VOMITING Vit/Calcium/Iron/Folic Ac (Stuartnatal Plus 3) 1 tab PO DAILY [facility] Allergies Allergy/AdvReac Type Severity Reaction Status Date / Time No Known Allergies Allergy Verified 07/28/18 11:20 Home Medications Medication Instructions Recorded Confirmed Type prenat.vits,anne marie,lxk-eplm-yxkae 1 tab PO DAILY 07/11/18 07/28/18 History [ Vitamin] Exam Vital signs: Vital Signs 07/28/18 10:38 07/28/18 13:00 07/28/18 14:42 Temperature 98.4 F 98.6 F Pulse Rate 97 H 92 H 92 H Respiratory Rate 16 20 18 Blood Pressure 117/68 122/63 112/53 L Pulse Oximetry 100 100 100 07/28/18 14:48 07/28/18 14:58 07/28/18 17:20 Temperature 98.4 F Pulse Rate 92 H 93 H 88 Respiratory Rate 18 20 16 Blood Pressure 108/56 L 108/56 L 114/67 Pulse Oximetry 99 100 100 07/28/18 19:00 Temperature 98.9 F Pulse Rate 90 Respiratory Rate 16 Blood Pressure 127/62 Pulse Oximetry 100 Intake & Output 07/28/18 07/28/18 07/29/18 06:59 18:59 06:59 Intake Total 397 / 397 497 / 497 Balance 397 / 397 497 / 497 Weight 72.8 kg Intake: Intake (Blood Product) Amt 397 / 397 Rbc As-3 Leukoreduced Unit 397 / 397 [id number] Autotransfusion Amount 497 / 497 Other: Weight On Admission 72.8 kg - Constitutional no acute distress - Routine HEENT Exam Head: Present: normocephalic Eye: Present: PERRL ENT: Present: mucous membranes moist - Routine Neck Exam Present: supple - Routine Respiratory Exam Present: CTA bilaterally - Routine Cardiovascular Exam Present: RRR - Routine Abdominal Exam Present: soft (non tendder) - Routine Exam External: Present: normal urethra appearance Perineum Description: Intact (SSE showed cervix closed, long, minimal blood noted.), Edematous (confirmed on SVE. uterus enlarged abot 10 weeks size.) - Routine Skin Exam Present: intact - Routine Neurological Exam Present: alert, oriented X3, CN II-XII intact Results - Labs CBC & Chem 7: 07/28/18 11:50 07/28/18 11:50 Labs: Laboratory Results - last 24 hr 07/28/18 07/28/18 07/28/18 10:51 11:50 11:50 WBC 9.5 RBC 3.48 L Hgb 5.9 L* Hct 19.2 L* MCV 55.3 L MCH 16.9 L MCHC 30.5 L RDW 20.7 H Plt Count 410 MPV 8.5 Prelim Diff (Auto) Slide review pending Neut % (Auto) 62.0 Lymph % (Auto) 24.7 [place] % (Auto) 12.0 H Eos % (Auto) 0.9 Baso % (Auto) 0.4 Neut # (Auto) 5.9 Lymph # (Auto) 2.4 [place] # (Auto) 1.1 H Eos # (Auto) 0.1 Baso # (Auto) 0.0 WBC Differential . Diff Scan Auto diff confirmed Differential Comment . Target Cells 1+ H Tear Drop Cells 1+ H Ovalocytes 1+ H Keratocytes Occ H Sodium 135 L Potassium 3.7 Chloride 103 Carbon Dioxide 24.8 Anion Gap 7 BUN 9 Creatinine 0.46 L Estimated GFR Greater than 89 Random Glucose 89 Calcium 8.5 Beta HCG, Quant 09949 H Urine Color Yellow Urine Clarity Hazy H Urine pH 6.0 Ur Specific [place] 1.021 Urine Protein Negative Urine Glucose (UA) Negative Urine Ketones Negative Urine Occult Blood Negative Urine Nitrate Negative Urine Bilirubin Negative Urine Urobilinogen Less than 2 Ur Leukocyte Esterase Large H Urine RBC 14 H Urine WBC 48 H Ur Squamous Epith Cells 5 Ur Transition Epith Cell <1 Urine Bacteria Rare H Urine Mucus Moderate H Micro UA Comment Culture indicated Ur Microscopic Review Not Reportable Urine Culture Comments Culture indicated Clue Cells (Wet Prep) Trichomonas (Wet Prep) Yeast (Wet Prep) Chlam trachomat DNA PCR N.gonorrhoeae DNA (PCR) Blood Type Antibody Screen MTS Gel Crossmatch 07/28/18 07/28/18 07/28/18 11:50 12:33 13:20 WBC RBC Hgb Hct MCV MCH MCHC RDW Plt Count MPV Prelim Diff (Auto) Neut % (Auto) Lymph % (Auto) [place] % (Auto) Eos % (Auto) Baso % (Auto) Neut # (Auto) Lymph # (Auto) [place] # (Auto) Eos # (Auto) Baso # (Auto) WBC Differential Diff Scan Differential Comment Target Cells Tear Drop Cells Ovalocytes Keratocytes Sodium Potassium Chloride Carbon Dioxide Anion Gap BUN Creatinine Estimated GFR Random Glucose Calcium Beta HCG, Quant Urine Color Urine Clarity Urine pH Ur Specific [place] Urine Protein Urine Glucose (UA) Urine Ketones Urine Occult Blood Urine Nitrate Urine Bilirubin Urine Urobilinogen Ur Leukocyte Esterase Urine RBC Urine WBC Ur Squamous Epith Cells Ur Transition Epith Cell Urine Bacteria Urine Mucus Micro UA Comment Ur Microscopic Review Urine Culture Comments Clue Cells (Wet Prep) Trichomonas (Wet Prep) Yeast (Wet Prep) Chlam trachomat DNA PCR Not detected N.gonorrhoeae DNA (PCR) Not detected Blood Type O Positive Antibody Screen Negative MTS Gel Crossmatch See Detail 07/28/18 13:20 WBC RBC Hgb Hct MCV MCH MCHC RDW Plt Count MPV Prelim Diff (Auto) Neut % (Auto) Lymph % (Auto) [place] % (Auto) Eos % (Auto) Baso % (Auto) Neut # (Auto) Lymph # (Auto) [place] # (Auto) Eos # (Auto) Baso # (Auto) WBC Differential Diff Scan Differential Comment Target Cells Tear Drop Cells Ovalocytes Keratocytes Sodium Potassium Chloride Carbon Dioxide Anion Gap BUN Creatinine Estimated GFR Random Glucose Calcium Beta HCG, Quant Urine Color Urine Clarity Urine pH Ur Specific [place] Urine Protein Urine Glucose (UA) Urine Ketones Urine Occult Blood Urine Nitrate Urine Bilirubin Urine Urobilinogen Ur Leukocyte Esterase Urine RBC Urine WBC Ur Squamous Epith Cells Ur Transition Epith Cell Urine Bacteria Urine Mucus Micro UA Comment Ur Microscopic Review Urine Culture Comments Clue Cells (Wet Prep) Present H Trichomonas (Wet Prep) None seen Yeast (Wet Prep) None seen Chlam trachomat DNA PCR N.gonorrhoeae DNA (PCR) Blood Type Antibody Screen MTS Gel Crossmatch - Imaging Impressions Pelvic/Transvag US 07/28/18 11:50 CONCLUSION: 1. Single viable intrauterine gestation identified with a heart rate of 178 bpm. 2. Uterine fibroid. Caprini VTE Risk Assessment Caprini VTE Risk Assessment: No/Low Risk (score <= 1) Caprini Risk Assessment Model: Point Value = 1 Point Value = 2 Point Value = 3 Point Value = 5 Age 41-60 Minor surgery BMI > 25 kg/m2 Swollen legs Varicose veins or History of unexplained or recurrent spontaneous Oral contraceptives or hormone replacement Sepsis (< 1 month) Serious lung disease, including pneumonia (< 1 month) Abnormal pulmonary function Acute myocardial infarction Congestive heart failure (< 1 month) History of inflammatory bowel disease Medical patient at bed rest Age 61-74 Arthroscopic surgery Major open surgery (> 45 min) Laparoscopic surgery (> 45 min) Malignancy Confined to bed (> 72 hours) Immobilizing plaster cast Central venous access Age >= 75 History of VTE Family history of VTE Factor V Leiden Prothrombin [id number] Lupus anticoagulant Anticardiolipin antibodies Elevated serum homocysteine Heparin-induced thrombocytopenia Other congenital or acquired thrombophilia Stroke (< 1 month) Elective arthroplasty Hip, pelvis, or leg fracture Acute spinal cord injury (< 1 month) Prophylaxis Regimen: Total Risk Factor Score Risk Level Prophylaxis Regimen 0-1 Low Early ambulation 2 Moderate Order ONE of the following: *Sequential Compression Device (SCD) *Heparin 5000 units SQ BID 3-4 Higher Order ONE of the following medications: *Heparin 5000 units SQ TID *Enoxaparin/Lovenox 40 mg SQ daily (WT < 150 kg, CrCl > 30 mL/min) *Enoxaparin/Lovenox 30 mg SQ daily (WT < 150 kg, CrCl > 10-29 mL/min) *Enoxaparin/Lovenox 30 mg SQ BID (WT < 150 kg, CrCl > 30 mL/min) AND/OR *Sequential Compression Device (SCD) 5 or more Highest Order ONE of the following medications: *Heparin 5000 units SQ TID (Preferred with Epidurals) *Enoxaparin/Lovenox 40 mg SQ daily (WT < 150 kg, CrCl > 30 mL/min) *Enoxaparin/Lovenox 30 mg SQ daily (WT < 150 kg, CrCl > 10-29 mL/min) *Enoxaparin/Lovenox 30 mg SQ BID (WT < 150 kg, CrCl > 30 mL/min) AND *Sequential Compression Device (SCD) Assessment and Plan - Diagnosis (1) Anemia Code(s): D64.9 - Anemia, unspecified Status: Acute Plan: I believe anemia is secondary to prior abnormal bleeding. Patient has long history of menorrhagia, likely secondary to uterine fibroids, Patient is being transfused 2 units. My recommendation would be to transfuse total 3 units to increase hg closer to 9g/dL. (2) Bacterial vaginosis Code(s): N76.0 - Acute vaginitis; B96.89 - Other specified bacterial agents as the cause of diseases classified elsewhere Status: Acute Plan: continue Flagyl as ordered (3) Cystitis Code(s): N30.90 - Cystitis, unspecified without hematuria Status: Acute Plan: contiunue Macrobid as ordered (4) Code(s): Z34.90 - Encounter for supervision of normal , unspecified, unspecified trimester Status: Acute (5) Threatened in early Code(s): O20.0 - Threatened Status: Acute Plan: Pt has some bleeding today, that is resolving. Cervix closed and there is minimal bleeding. I would recommend another ultrasound to confirm viability prior to discharge. Patient is Rh POSITIVE (6) Leiomyoma in , uterine, antepartum Code(s): O34.10 - Maternal care for benign tumor of corpus uteri, unspecified trimester; D25.9 - Leiomyoma of uterus, unspecified Status: Acute - Plan Patient currently has no abdominal pain. Fibroids may also increase in size during , and can lead to abdominal pain and increase risk of miscarriage. No intervention planned, except analgesia if needed. (1) Anemia Qualifiers: Anemia type: iron deficiency Iron deficiency anemia type: chronic blood loss Qualified Code(s): D50.0 - Iron deficiency anemia secondary to blood loss ( chronic) (4) Qualifiers: Weeks of gestation: 9 weeks Qualified Code(s): Z3A.09 - 9 weeks gestation of
[2018-07-28 22:08] LABS: Hematocrit 23.5 % (35.0-46.0); Hemoglobin 7.4 gm/dL (11.6-15.3)
[2018-07-29] MEDS: metroNIDAZOLE 500 MG Tablet PO SCH ×2 (00:21→09:22)
[2018-07-29 07:16] LABS: Baso % (Auto) 0.3 % (0.0-2.0); Eos # (Auto) 0.1 th/mm3 (0.0-0.4); Eos % (Auto) 0.8 % (0.0-4.0); Hematocrit 23.4 % (35.0-46.0); Hemoglobin 7.3 gm/dL (11.6-15.3); Lymph # (Auto) 2.3 th/mm3 (1.0-4.8); Mean Corpuscular HGB Conc 31.3 % (32.0-36.0); Mean Corpuscular Hemoglobin 18.2 pg (27.0-34.0); Mean Corpuscular Volume 58.3 fL (80.0-100.0); Mean Platelet Volume 8.8 fL (7.0-11.0); Mono % (Auto) 10.5 % (0.0-8.0); Neut # (Auto) 6.2 th/mm3 (1.8-7.7); Neut % (Auto) 64.4 % (16.0-70.0); Platelet Count 406 th/mm3 (150-450); Red Blood Count 4.02 mil/mm3 (4.00-5.30); Red Cell Distribution Width 24.9 % (11.6-17.2); White Blood Count 9.7 th/mm3 (4.0-11.0)
[2018-07-29 07:26] LABS: Albumin 3.1 g/dL (3.4-5.0); Anion Gap 8 meq/L (5-15); Aspartate Aminotransferase 16 U/L (15-37); Blood Urea Nitrogen 6 mg/dL (7-18); Calcium 8.6 mg/dL (8.5-10.1); Carbon Dioxide 24.8 meq/L (21.0-32.0); Chloride 105 meq/L (98-107); Glomerular Filtration Rate Greater Than 89 mL/min (>89); Glucose,Random 82 mg/dL (74-106); Potassium 3.5 meq/L (3.5-5.1); Sodium 138 meq/L (136-145)
[2018-07-29 07:27] LABS: Alanine Aminotransferase 21 U/L (10-53)
[2018-07-29 07:29] LABS: Alkaline Phosphatase 69 U/L (45-117); Total Protein 7.6 g/dL (6.4-8.2)
[2018-07-29] MEDS ORDERED: Prenatal Vit/Ca/Iron/Folic Acid Tablet PO SCH (09:00)
[2018-07-29] MEDS: Nitrofurantoin Monohydrate-Macrocrystal 100 MG Capsule PO SCH ×2 (10:25→17:46)
--- NOTE | 2018-07-29 10:38 | P.PNIM ---
Subjective Interval history: Follow-up for vaginal bleeding, itching and anemia Patient feels better, stronger, no shortness of breath. Vaginal itching better , vaginal bleeding stopped. No abdominal pain or cramping. No nausea or vomiting. Afebrile. Physical Exam Vital signs: Vital Signs 07/28/18 10:38 07/28/18 13:00 07/28/18 14:42 Temperature 98.4 F 98.6 F Pulse Rate 97 H 92 H 92 H Respiratory Rate 16 20 18 Blood Pressure 117/68 122/63 112/53 L Pulse Oximetry 100 100 100 07/28/18 14:48 07/28/18 14:58 07/28/18 17:20 Temperature 98.4 F Pulse Rate 92 H 93 H 88 Respiratory Rate 18 20 16 Blood Pressure 108/56 L 108/56 L 114/67 Pulse Oximetry 99 100 100 07/28/18 19:00 07/28/18 20:00 07/29/18 00:00 Temperature 98.9 F 98.7 F 99.2 F Pulse Rate 90 94 H 86 Respiratory Rate 16 18 18 Blood Pressure 127/62 113/64 111/56 L Pulse Oximetry 100 100 99 07/29/18 00:55 07/29/18 04:00 07/29/18 09:51 Temperature 98.5 F 98.2 F Pulse Rate 100 H 85 Respiratory Rate 22 18 20 Blood Pressure 111/53 L 122/56 L Pulse Oximetry 99 96 Intake & Output 07/28/18 07/29/18 07/29/18 18:59 06:59 18:59 Intake Total 397 / 397 1097 / 1097 Balance 397 / 397 1097 / 1097 Weight 72.8 kg Intake: Oral 600 / 600 Intake (Blood Product) Amt 397 / 397 Rbc As-3 Leukoreduced Unit 397 / 397 [id number] Autotransfusion Amount 497 / 497 Other: Weight On Admission 72.8 kg Narrative: GENERAL: NAD CARDIOVASCULAR: Regular rate and rhythm without murmurs, gallops, or rubs. RESPIRATORY: Breath sounds equal bilaterally. No accessory muscle use. GASTROINTESTINAL: Gravid ,Abdomen soft, non-tender, nondistended. MUSCULOSKELETAL: No cyanosis, or edema. BACK: Nontender without obvious deformity. No CVA tenderness. Results - Labs CBC & Chem 7: 07/29/18 05:45 07/29/18 05:45 Laboratory Results - last 24 hr 07/28/18 07/28/18 07/28/18 10:51 11:50 11:50 WBC 9.5 RBC 3.48 L Hgb 5.9 L* Hct 19.2 L* MCV 55.3 L MCH 16.9 L MCHC 30.5 L RDW 20.7 H Plt Count 410 MPV 8.5 Prelim Diff (Auto) Slide review pending Neut % (Auto) 62.0 Lymph % (Auto) 24.7 Stewart % (Auto) 12.0 H Eos % (Auto) 0.9 Baso % (Auto) 0.4 Neut # (Auto) 5.9 Lymph # (Auto) 2.4 Stewart # (Auto) 1.1 H Eos # (Auto) 0.1 Baso # (Auto) 0.0 WBC Differential . Diff Scan Auto diff confirmed Differential Comment . Target Cells 1+ H Tear Drop Cells 1+ H Ovalocytes 1+ H Keratocytes Occ H Sodium 135 L Potassium 3.7 Chloride 103 Carbon Dioxide 24.8 Anion Gap 7 BUN 9 Creatinine 0.46 L Estimated GFR Greater than 89 Random Glucose 89 Calcium 8.5 Total Bilirubin AST ALT Alkaline Phosphatase Total Protein Albumin Beta HCG, Quant 74265 H Urine Color Yellow Urine Clarity Hazy H Urine pH 6.0 Ur Specific [place] 1.021 Urine Protein Negative Urine Glucose (UA) Negative Urine Ketones Negative Urine Occult Blood Negative Urine Nitrate Negative Urine Bilirubin Negative Urine Urobilinogen Less than 2 Ur Leukocyte Esterase Large H Urine RBC 14 H Urine WBC 48 H Ur Squamous Epith Cells 5 Ur Transition Epith Cell <1 Urine Bacteria Rare H Urine Mucus Moderate H Micro UA Comment Culture indicated Ur Microscopic Review Not Reportable Urine Culture Comments Culture indicated Clue Cells (Wet Prep) Trichomonas (Wet Prep) Yeast (Wet Prep) Chlam trachomat DNA PCR N.gonorrhoeae DNA (PCR) Blood Type Antibody Screen MTS Gel Crossmatch 07/28/18 07/28/18 07/28/18 11:50 12:33 13:20 WBC RBC Hgb Hct MCV MCH MCHC RDW Plt Count MPV Prelim Diff (Auto) Neut % (Auto) Lymph % (Auto) Stewart % (Auto) Eos % (Auto) Baso % (Auto) Neut # (Auto) Lymph # (Auto) Stewart # (Auto) Eos # (Auto) Baso # (Auto) WBC Differential Diff Scan Differential Comment Target Cells Tear Drop Cells Ovalocytes Keratocytes Sodium Potassium Chloride Carbon Dioxide Anion Gap BUN Creatinine Estimated GFR Random Glucose Calcium Total Bilirubin AST ALT Alkaline Phosphatase Total Protein Albumin Beta HCG, Quant Urine Color Urine Clarity Urine pH Ur Specific [place] Urine Protein Urine Glucose (UA) Urine Ketones Urine Occult Blood Urine Nitrate Urine Bilirubin Urine Urobilinogen Ur Leukocyte Esterase Urine RBC Urine WBC Ur Squamous Epith Cells Ur Transition Epith Cell Urine Bacteria Urine Mucus Micro UA Comment Ur Microscopic Review Urine Culture Comments Clue Cells (Wet Prep) Trichomonas (Wet Prep) Yeast (Wet Prep) Chlam trachomat DNA PCR Not detected N.gonorrhoeae DNA (PCR) Not detected Blood Type O Positive Antibody Screen Negative MTS Gel Crossmatch See Detail 07/28/18 07/28/18 07/29/18 13:20 21:57 05:45 WBC 9.7 RBC 4.02 Hgb 7.4 L 7.3 L Hct 23.5 L 23.4 L MCV 58.3 L MCH 18.2 L MCHC 31.3 L RDW 24.9 H D Plt Count 406 MPV 8.8 Prelim Diff (Auto) Neut % (Auto) 64.4 Lymph % (Auto) 24.0 Stewart % (Auto) 10.5 H Eos % (Auto) 0.8 Baso % (Auto) 0.3 Neut # (Auto) 6.2 Lymph # (Auto) 2.3 Stewart # (Auto) 1.0 H Eos # (Auto) 0.1 Baso # (Auto) 0.0 WBC Differential . Diff Scan Differential Comment Auto diff final Target Cells Tear Drop Cells Ovalocytes Keratocytes Sodium Potassium Chloride Carbon Dioxide Anion Gap BUN Creatinine Estimated GFR Random Glucose Calcium Total Bilirubin AST ALT Alkaline Phosphatase Total Protein Albumin Beta HCG, Quant Urine Color Urine Clarity Urine pH Ur Specific [place] Urine Protein Urine Glucose (UA) Urine Ketones Urine Occult Blood Urine Nitrate Urine Bilirubin Urine Urobilinogen Ur Leukocyte Esterase Urine RBC Urine WBC Ur Squamous Epith Cells Ur Transition Epith Cell Urine Bacteria Urine Mucus Micro UA Comment Ur Microscopic Review Urine Culture Comments Clue Cells (Wet Prep) Present H Trichomonas (Wet Prep) None seen Yeast (Wet Prep) None seen Chlam trachomat DNA PCR N.gonorrhoeae DNA (PCR) Blood Type Antibody Screen MTS Gel Crossmatch 07/29/18 05:45 WBC RBC Hgb Hct MCV MCH MCHC RDW Plt Count MPV Prelim Diff (Auto) Neut % (Auto) Lymph % (Auto) Stewart % (Auto) Eos % (Auto) Baso % (Auto) Neut # (Auto) Lymph # (Auto) Stewart # (Auto) Eos # (Auto) Baso # (Auto) WBC Differential Diff Scan Differential Comment Target Cells Tear Drop Cells Ovalocytes Keratocytes Sodium 138 Potassium 3.5 Chloride 105 Carbon Dioxide 24.8 Anion Gap 8 BUN 6 L Creatinine 0.51 Estimated GFR Greater than 89 Random Glucose 82 Calcium 8.6 Total Bilirubin 0.4 AST 16 ALT 21 Alkaline Phosphatase 69 Total Protein 7.6 Albumin 3.1 L Beta HCG, Quant Urine Color Urine Clarity Urine pH Ur Specific [place] Urine Protein Urine Glucose (UA) Urine Ketones Urine Occult Blood Urine Nitrate Urine Bilirubin Urine Urobilinogen Ur Leukocyte Esterase Urine RBC Urine WBC Ur Squamous Epith Cells Ur Transition Epith Cell Urine Bacteria Urine Mucus Micro UA Comment Ur Microscopic Review Urine Culture Comments Clue Cells (Wet Prep) Trichomonas (Wet Prep) Yeast (Wet Prep) Chlam trachomat DNA PCR N.gonorrhoeae DNA (PCR) Blood Type Antibody Screen MTS Gel Crossmatch Microbiology 07/28/18 10:51 Clean Catch Urine Urine Culture - Final 10-50,000 cfu/mL mixed gram positive gunaaco (probable contaminants) - Imaging Impressions Pelvic/Transvag US 07/28/18 11:50 CONCLUSION: 1. Single viable intrauterine gestation identified with a heart rate of 178 bpm. 2. Uterine fibroid. Assessment and Plan - Assessment (1) UTI (urinary tract infection) during Code(s): O23.40 - Unspecified infection of urinary tract in , unspecified trimester Status: Acute (2) Anemia Code(s): D64.9 - Anemia, unspecified Status: Acute (3) Bacterial vaginosis Code(s): N76.0 - Acute vaginitis; B96.89 - Other specified bacterial agents as the cause of diseases classified elsewhere Status: Acute (4) Code(s): Z34.90 - Encounter for supervision of normal , unspecified, unspecified trimester Status: Acute - Plan 27-year-old female with Intrauterine -[employer] consulted, recommended to recheck pelvic ultrasound to check for viability. Bleeding has stopped. Anemia of iron deficiency-could be secondary to prior abnormal bleeding from menorrhagia, likely secondary to uterine fibroids per [employer]. Transfuse to 9 g/ dL. Status post 2 units transfusion. Hemoglobin 7.3, transfuse 2 more units of packed red blood cells. Discharge if hemoglobin is 8.8 or above. Threatened early -had some bleeding, resolving, cervix is closed, follow-up ultrasound to confirm viability prior to discharge. Patient is Rh+. Uterine fibroids-increase in size during , and cause abdominal pain, increased risk for miscarriage, management per [employer] him a allergy shave needed. UTI in -continue Macrobid Bacterial vaginosis-continue Flagyl DVT prophylaxis:Low risk for VTE, encourage ambulation Follow-up with primary care physician in 2-3 days Prescriptions: Macrobid and Flagyl (2) Anemia Qualifiers: Anemia type: iron deficiency Iron deficiency anemia type: chronic blood loss Qualified Code(s): D50.0 - Iron deficiency anemia secondary to blood loss ( chronic) (4) Qualifiers: Weeks of gestation: 9 weeks Qualified Code(s): Z3A.09 - 9 weeks gestation of
[2018-07-29] MEDS ORDERED: Sodium Chlor 0.9% Inj 250 ML IV.SIG SCH (11:00)
[2018-07-29 16:27] VITALS: TEMP 98.2
--- NOTE | 2018-07-29 16:47 | US ---
EXAM DATE: 07/29/2018 4:39 PM EDT AGE/SEX: 27 years / Female INDICATIONS: Vaginal bleeding. CLINICAL DATA: This is the patient's subsequent encounter. Patient reports that signs and symptoms h ave been present for 2 days and indicates a pain score of 0/10. MEDICAL/SURGICAL HISTORY: . b Sickle cell trait. Uterine fibroid. . D&C. COMPARISON: [facility] – [place], [place] (SGL/1STGES), 07/28/2018. . TECHNIQUE: Real-time ultrasound of the pelvis was performed using an endovaginal transducer. [facility] – [place]: 7 MEASUREMENTS: Uterus:__14.7 x 10.8 x 8.6 cm Endometrial Stripe:__15 mm Right Ovary:__ 3.5 x 3.0 x 2.2 cm Left Ovary:__ 4.7 x 4.6 x 2.6 cm FINDINGS: Uterus: The uterus is inhomogeneous with an approximate 9.7 cm complex mass probably a large fibroid. Intramural uterine gestational sac and crown lump length measures 2.9 cm corresponding to 9 weeks an d 5 days. heartbeat is present in the 182 bpm. Right Ovary: Ovary contains no mass or significant cystic lesion. Left Ovary: There is a simple cyst in the left ovary measures 2.5 cm in size. Other: None. CONCLUSION: 1. Viable IUP and large uterine fibroid. Electronically signed by: Zarina Escoto MD 07/29/2018 4:46 PM EDT
[2018-07-29 17:15] VITALS: RESP 17
[2018-07-29 17:24] LABS: Hematocrit 31.3 % (35.0-46.0); Hemoglobin 9.9 gm/dL (11.6-15.3)
[2018-07-29 17:39] VITALS: BP 117/63; PULSE 80; O2SAT 96
--- NOTE | 2018-08-20 09:59 | US ---
EXAM DATE: 07/29/2018 4:39 PM EDT AGE/SEX: 27 years / Female INDICATIONS: Vaginal bleeding. CLINICAL DATA: This is the patient's subsequent encounter. Patient reports that signs and symptoms h ave been present for 2 days and indicates a pain score of 0/10. MEDICAL/SURGICAL HISTORY: . b Sickle cell trait. Uterine fibroid. . D&C. COMPARISON: [facility] – [place], [place] (SGL/1STGES), 07/28/2018. . TECHNIQUE: Real-time ultrasound of the pelvis was performed using an endovaginal transducer. [facility] [place]: 7 MEASUREMENTS: Uterus:__14.7 x 10.8 x 8.6 cm Endometrial Stripe:__15 mm Right Ovary:__ 3.5 x 3.0 x 2.2 cm Left Ovary:__ 4.7 x 4.6 x 2.6 cm FINDINGS: Uterus: The uterus is inhomogeneous with an approximate 9.7 cm complex mass probably a large fibroid. Intramural uterine gestational sac and crown lump length measures 2.9 cm corresponding to 9 weeks an d 5 days. heartbeat is present in the 182 bpm. Right Ovary: Ovary contains no mass or significant cystic lesion. Left Ovary: There is a simple cyst in the left ovary measures 2.5 cm in size. Other: None. CONCLUSION: 1. Viable IUP and large uterine fibroid. Electronically signed by: Zarina Escoto MD 07/29/2018 4:46 PM EDT
== END 2018-07-29 18:48 | disposition home or self-care (01) ==
LOC: NEPC 10:21 → NEDA 10:21 → NEPFCDU 16:32
PROVIDERS: ADMIT Hospitalist; ATTEND Hospitalist